=== PATIENT | male | born 1950 | race Caucasian/White ===

== ENCOUNTER 2023-08-16 09:54 | Outpatient (OUT) | payer MEDICARE, SELFPAY ==
[2023-08-16 11:09] LABS: Prostate Specific Antigen Scrn 1.73 ng/mL (<=4.00)
== END 2023-08-16 09:55 | disposition home or self-care (01) ==
LOC: LAB 09:59
PROVIDERS: PCP Internal Medicine; Visit Provider Urology
DX: C61 Malignant neoplasm of prostate (principal); N40.1 Benign prostatic hyperplasia with lower urinary tract symptoms
CPT/HCPCS: 36415; 84153; G0103

== ENCOUNTER 2023-10-12 13:09 | Outpatient (OUT) | payer MEDICARE, SELFPAY ==
--- NOTE | 2023-10-12 | XR_ITS ---
The [address] [address] Patient Name: BALTAZAR DUPONT MRN: [id number] date: 1950 Sex: M Assigned Patient Location: Current Patient Location: Accession/Order Number: [id number] Exam Date: 10/12/2023 13:10 Report Date: 10/13/2023 06:51 At the request of: KALEE APODACA Procedure: XR foot RT min 3V PROCEDURE: XR foot RT min 3V HISTORY: RIGHT FOOT PAIN COMPARISON: None. FINDINGS: BONES:No fracture, acute abnormality, or significant arthropathy. Mild degenerative enthesopathic spurring of the calcaneus. SOFT TISSUES:No visible soft tissue swelling. EFFUSION:None visible. OTHER: Negative. XR/XR foot RT min 3V IMPRESSION: 1. No acute bone abnormality. 2. Minimal degenerative changes. Electronically authenticated by: SANDRA ROMANO Date: 10/13/2023 06:51
--- OUTSIDE RECORDS SUMMARY | 2023-10-12 13:22 | XMS_ITS | CCD ---
Author Organization [facility] Care Team Providers Care Corrections Caseworker Name Role Phone Unavailable Primary Care Provider Alondra DRUMMOND ., DR CORDERO Admitting Unavailable DRUMMOND ., DR CORDERO Attending Unavailable LANIE, DR ODRSEY Primary Care Unavailable DRUMMOND ., DR CORDERO Consulting Unavailable DRUMMOND ., DR CORDERO Admitting Unavailable JOSELYN ., DR CORDERO Attending Unavailable LANIE, DR DORSEY Primary Care Unavailable DRUMMOND ., DR CORDERO Consulting Unavailable DRUMMOND, Ezequiel Bruno Attending Unavailable JOSELYN, Ezequiel Bruno Attending Unavailable Allergies Allergy Classification Reported Allergen(s) Allergy Type Date of Onset Reaction(s) Facility (1 source) No Known Medication Allergies; Translations: [No Known Medication Allergies] Propensity to adverse reactions (disorder) [facility] Repository Medications Current Medications Medication Drug Class(es) Dates Sig (Normalized) Sig (Original) iv contrast (will be provided with radiology test) (1 source) Start: 10-02-2020 End: 10-03-2020 iv contrast (will be provided with radiology test) MRI Prostate Inject, intravenously, once for 1 dose. No IV access, insert saline lock prior to the beginning of sedation, infusion, injection of imaging exam. Discontinue saline lock post exam. If Pt. has a central line or IVAD, may access for administration according to line specific nursing protocol. Once exam is complete flush line and de-access according to line specific nursing protocol in the MR contrast administration guidelines link. 1 Each 0 10/02/2020 10/03/2020 Active Comment on above: MRI Prostate Inject, intravenously, once for 1 dose. No IV access, insert saline lock prior to the beginning of sedation, infusion, injection of imaging exam. Discontinue saline lock post exam. If Pt. has a central line or IVAD, may access for administration according to line specific nursing protocol. Once exam is complete flush line and de-access according to line specific nursing protocol in the MR contrast administration guidelines link. Problems Problem Classification Problem Date Documented Da te Episodic/Chronic Cancer of prostate (4 sources) Malignant neoplasm of prostate; Translations: [MALIGNANT NEOPLASM OF PROSTATE] Onset: 02-05-2022 Chronic Hyperplasia of prostate (1 source) Benign prostatic hyperplasia with lower urinary tract symptoms; Translations: [BENIGN PROSTATIC HYPERPLASIA W/LUTS] Onset: 02-06-2022 Chronic Results Test Name Value Interpretation Reference Range Facility [facility] 08-17-2023 Lab Reports [id number] Normal [facility] Ambulatory Visit Summaryon 0 10-30-2022 Ambulatory Visit Summary HERIBERTO DUPONT :1950 MRN:[id number] Visit Date:10/30/2022 Ambulatory Visit Instructions Your Diagnosis Prostate cancer BPH (benign prostatic hyperplasia) Tests Performed Urnls Dip Stick Auto w/o Microscopy POC 85018 Your Care Team Attending Physician - JOSELYN FISHER, Ezequiel Bruno Primary Care Physician - LANIE FISHER, WILLIAN Hernandez This Is Your Medications List Contact prescribing physician if questions or concerns amlodipine-benazepril (amLODIPine-benazepril 10mg-40 mg Cap) labetalol (labetalol 300 mg Tab) potassium chloride (Klor-Con 10 mEq) simvastatin (simvastatin 20 mg Tab) Procedures Performed MRI-US fusion guided transperineal biopsy of prostate (11/12/2020), Transrectal biopsy of prostate using ultrasound (US) guidance (06/16/2018), Transrectal biopsy of prostate using ultrasound guidance (05/18/2017), Transrectal biopsy of prostate using ultrasound guidance (05/05/2016), Transrectal biopsy of prostate using ultrasound guidance (03/13/2014), TURP - Transurethral resection of prostate (03/16/2013), Cystoscopy (02/14/2013), Transrectal biopsy of prostate using ultrasound guidance (06/16/2008), Cystoscopy (2008), TURBT - Transurethral resection of bladder tumor (2008), Urodynamics (2008), Appendectomy, Carpal tunnel release, Cholecystectomy, Colonoscopy. Discharge Vitals Heart Rate (Peripheral) 72 Respiratory Rate 16 Blood Pressure 129/78 Height 167 cm Height 66 in Weight 75 kg Weight 165 lb BMI 26.89 What to do next You Need to Schedule the Following Appointments Follow Up with JOSELYN FISHER, GARY Amaya When: Where: [facility] [address], [place] [address]- Medications What How Much When Instructions Unchanged amlodipine-benazepril (amLODIPine-benazepril 10mg-40 mg Cap) 1 Capsules By Mouth Every day Contact prescribing physician if questions or concerns Unchanged labetalol (labetalol 300 mg Tab) 1 Tablets By Mouth 2 times a day Contact prescribing physician if questions or concerns Unchanged potassium chloride (Klor-Con 10 mEq) 1 Tablets By Mouth Every day Contact prescribing physician if questions or concerns Unchanged simvastatin (simvastatin 20 mg Tab) 1 Tablets By Mouth Once a day (at bedtime) Contact prescribing physician if questions or concerns Test Results Urnls Dip Stick Auto w/o Microscopy POC 76901 (10/30/2022) Bilirubin Urine Dipstick - 1+ Small Blood Urine Dipstick - Trace-lysed Glucose Urine Dipstick - Negative Ketones Urine Dipstick - Negative Leukocytes Urine Dipstick - Negative Nitrite Urine Dipstick - Negative Protein Urine Dipstick - 1+ (30 mg/dl) Specific [place] Urine Dipstick - 1.025 Urine Appearance Urine Dipstick - Clear Urine Color Urine Dipstick - Yellow Urobilinogen Urine Dipstick - Normal 0.2-1 EU/dl pH Urine Dipstick - 6 Allergies No Known Medication Allergies Problems Ongoing - Any problem that you are currently receiving treatment for. BPH (benign prostatic hyperplasia) Elevated PSA Epididymitis Hyperlipidemia Hypertension Microscopic hematuria Nocturia Prostate cancer Prostatitis Proteinuria Urge incontinence Education Materials Prostate Cancer The prostate is a small gland that produces fluid that makes up semen (seminal fluid). It is located below the bladder in men, in front of the rectum. Prostate cancer is the abnormal growth of cells in the prostate gland. What are the causes? The exact cause of this condition is not known. What increases the risk? You are more likely to develop this condition if: ? You are 65 years of age or older. ? You have a family history of prostate cancer. ? You have a family history of breast and ovarian cancer. ? You have genes that are passed from parent to child (inherited), such as BRCA1 and BRCA2. ? You have Alston syndrome. men and men of descent are diagnosed with prostate cancer at higher rates than other men. The reasons for this are not well understood and are likely due to a combination of genetic and environmental factors. What are the signs or symptoms? Symptoms of this condition include: ? Problems with urination. This may include: ? A weak or interrupted flow of urine. ? Trouble starting or stopping urination. ? Trouble emptying the bladder all the way. ? The need to urinate more often, especially at night. ? Blood in urine or semen. ? Persistent pain or discomfort in the lower back, lower abdomen, or hips. ? Trouble getting an erection. ? Weakness or numbness in the legs or feet. How is this diagnosed? This condition can be diagnosed with: ? A digital rectal exam. For this exam, a health care provider inserts a gloved finger into the rectum to feel the prostate gland. ? A blood test called a prostate-specific antigen (PSA) test. ? A procedure in which a sample of tissue is taken from the prostate and travis (more content not included)... Normal [facility] Patient Educationon 10-30- 23 Patient Education Oncology Prostate Cancer The prostate is a small gland that produces fluid that makes up semen (seminal fluid). It is located below the bladder in men, in front of the rectum. Prostate cancer is the abnormal growth of cells in the prostate gland. What are the causes? The exact cause of this condition is not known. What increases the risk? You are more likely to develop this condition if: ? You are 65 years of age or older. ? You have a family history of prostate cancer. ? You have a family history of breast and ovarian cancer. ? You have genes that are passed from parent to child (inherited), such as BRCA1 and BRCA2. ? You have Alston syndrome. men and men of descent are diagnosed with prostate cancer at higher rates than other men. The reasons for this are not well understood and are likely due to a combination of genetic and environmental factors. What are the signs or symptoms? Symptoms of this condition include: ? Problems with urination. This may include: ? A weak or interrupted flow of urine. ? Trouble starting or stopping urination. ? Trouble emptying the bladder all the way. ? The need to urinate more often, especially at night. ? Blood in urine or semen. ? Persistent pain or discomfort in the lower back, lower abdomen, or hips. ? Trouble getting an erection. ? Weakness or numbness in the legs or feet. How is this diagnosed? This condition can be diagnosed with: ? A digital rectal exam. For this exam, a health care provider inserts a gloved finger into the rectum to feel the prostate gland. ? A blood test called a prostate-specific antigen (PSA) test. ? A procedure in which a sample of tissue is taken from the prostate and checked under a microscope (prostate biopsy). ? An imaging test called transrectal ultrasonography. Once the condition is diagnosed, tests will be done to determine how far the cancer has spread. This is called staging the cancer. Staging may involve imaging tests, such as a bone scan, CT scan, PET scan, or MRI. Stages of prostate cancer The stages of prostate cancer are as follows: ? Stage 1 (I). At this stage, the cancer is found in the prostate only. The cancer is not visible on imaging tests, and it is usually found by accident, such as during prostate surgery. ? Stage 2 (II). At this stage, the cancer is more advanced than it is in stage 1, but the cancer has not spread outside the prostate. ? Stage 3 (III). At this stage, the cancer has spread beyond the outer layer of the prostate to nearby tissues. The cancer may be found in the seminal vesicles, which are near the bladder and the prostate. ? Stage 4 (IV). At this stage, the cancer has spread to other parts of the body, such as the lymph nodes, bones, bladder, rectum, liver, or lungs. Prostate cancer grading Prostate cancer is also graded according to how the cancer cells look under a microscope. This is called the Chris score and the total score can range from 6?10, indicating how likely it is that the cancer will spread (metastasize) to other parts of the body. The higher the score, the greater the likelihood that the cancer will spread. ? Chris 6 or lower: This indicates that the cancer cells look similar to normal prostate cells (well differentiated). ? Chris 7: This indicates that the cancer cells look somewhat similar to normal prostate cells (moderately differentiated). ? Chris 8, 9, or 10: This indicates that the cancer cells look very different than normal prostate cells (poorly differentiated). How is this treated? Treatment for this condition depends on several factors, including the stage of the cancer, your age, personal preferences, and your overall health. Talk with your health care provider about treatment options that are recommended for you. Common treatments include: ? Observation for early stage prostate cancer (active surveillance). This involves having exams, blood tests, and in some cases, more biopsies. For some men, this is the only treatment needed. ? Surgery. Types of surgeries include: ? Open surgery (radical prostatectomy). In this surgery, a larger incision is made to remove the prostate. ? A laparoscopic radical prostatectomy. This is a surgery to remove the prostate and lymph nodes through several small incisions. It is often referred to as a minimally invasive surgery. ? A robotic radical prostatectomy. This is laparoscopic surgery to remove the prostate and lymph nodes with the help of robotic arms that are controlled by the surgeon. ? Cryoablation. This is surgery to freeze and destroy cancer cells. ? Radiation treatment. Types of radiation treatment include: ? External beam radiation. This type aims beams of radiation from outside the body at the prostate to destroy cancerous cells. ? Brachytherapy. This type uses radioactive needles, seeds, wires, or tubes that are implanted into the prostate gland. Like external be (more content not included)... Normal [facility] Urology Office/Clinic Noteon 10-30-2022 Urology Office/Clinic Note Chief Complaint prostate cancer (ACTIVE SURVEILLANCE) HPI Staff 8 month f/u with PSA. Previous dx include prostate cancer (ACTIVE SURVEILLANCE) and BPH with urinary obstruction. Current PSA done 10/16/22 is 1.94 and previous done 02/05/22 was 2.18. Dysuria: no Incomplete bladder emptying: no Hematuria: no Frequency: no Urgency: no Nocturia: 1-2x Stream: no straining or intermittency Leaking: no Post void dripping: no Wearing pads/ Depends: no Urge incontinence: no Stress incontinence: no Incontinence without Sensory Awareness: no Abdominal pain: no Flank pain: no Sexual complaints: no History of Present Illness Tests reviewed: reviewed UA, PSA. I have reviewed the previous health record information and history for this patient from Dr. Drummond. I have reviewed and verified the staff HPI to be accurate for this encounter. There have been no associated fever, chills, flank pain, or blood in the urine. Denies any urinary infections since last encounter. Review of Systems PHQ Score Initial Depression Screen Score: 0 ROS - Provider Constitutional: denies weight loss, denies hot flashes. Eyes: denies eye problems. Gastrointestinal: denies nausea, denies vomiting. Cardiovascular: denies chest pain or angina. Integumentary: no dryness Musculoskeletal: denies musculoskeletal symptoms. ENMT: denies otolaryngeal symptoms. Respiratory: no shortness of breath. Heme/Lymph: denies easy bleeding tendency, denies easy bruising tendency. Psychiatric: no confusion, no anxiety. Genitourinary: See HPI. Physical Exam Vitals & Measurements HR: 72(Peripheral) RR: 16 BP: 129/78 HT: 66 in HT: 167 cm WT: 75 kg WT: 165 lb BMI: 26.89 General Appearance: alert, no distress, well nourished, well developed male. Genitourinary: normal scrotum, normal testes, normal urethra, normal epididymis, normal vas deferens/spermatic cord. Flank Pain: none. Bladder: nonpalpable. Prostate: normal prostate, estimated weight 35 gms, no hard nodule observed. Assessment/Plan 1. Prostate cancer (C61: Malignant neoplasm of prostate) ACTIVE SURVEILLANCE. PSA: 06/10/21 - 1.80 02/05/22 - 2.18 10/16/22 - 1.94 Originally dx TURP 03/2013 - Path showed G5 (2+3). TRUS/Bx 04/2016 - Path showed G6 (3+3) x 2 cores. MRI 09/2020 - PI-RADS, 4 left peripheral zone lesion 0.8 cm. Fusion bx by Dr Carrera at [facility] 11/12/20 - 1 core PIN (right base) and 9 benign (including 4 from area of suspicion). PSA decreased from prior. Will cont to monitor. NELL today 35 gm, no nodules. Follow up 10 mos with PSA or sooner if needed. Pt understands and agrees with plan. -Consider MRI if PSA changes or NELL positive. 2. BPH (benign prostatic hyperplasia) (N40.0: Benign prostatic hyperplasia without lower urinary tract symptoms) S/p TURP 03/2013. UA today shows trace-lysed blood, neg for infection. Not taking any BPH meds. Follow-up With When Contact Information JOSELYN FISHER, Ezequiel Bruno, URL [facility] [address], [place] [address]- Additional Instructions: 10 mos PSA Patient Education Prostate Cancer I, Sowmya Casiano, personally scribed for Dr. Drummond on 10/30/2022 10:47:46. . Documentation recorded by the deweyibe, Sowmya Casiano, accurately reflects the services(s) I performed and decisions made by me. Authenticated by Dr. Drummond on 10/30/2022 10:50:30. Problem List/Past Medical History Ongoing BPH (benign prostatic hyperplasia) Elevated PSA Epididymitis Hyperlipidemia Hypertension Microscopic hematuria Nocturia Prostate cancer Prostatitis Proteinuria Urge incontinence Historical No qualifying data Procedure/Surgical History MRI-US fusion guided transperineal biopsy of prostate (11/12/2020), Transrectal biopsy of prostate using ultrasound (US) guidance (06/16/2018), Transrectal biopsy of prostate using ultrasound guidance (05/18/2017), Transrectal biopsy of prostate using ultrasound guidance (05/05/2016), Transrectal biopsy of prostate using ultrasound guidance (03/13/2014), TURP - Transurethral resection of prostate (03/16/2013), Cystoscopy (02/14/2013), Transrectal biopsy of prostate using ultrasound guidance (06/16/2008), Cystoscopy (2008), TURBT - Transurethral resection of bladder tumor (2008), Urodynamics (2008), Appendectomy, Carpal tunnel release, Cholecystectomy, Colonoscopy. Medications amLODIPine-benazepril 10mg-40 mg Cap, 1 cap(s), Oral, Daily Klor-Con 10 mEq, 10 mEq= 1 tab(s), Oral, Daily labetalol 300 mg Tab, 300 mg= 1 tab(s), Oral, BID simvastatin 20 mg Tab, 20 mg= 1 tab(s), Oral, Once a day (at bedtime) Allergies No Known Medication Allergies Social History Alcohol - Denies Alcohol Use, 03/27/2019 Tobacco - Denies Tobacco Use, 03/27/2019 Never (less than 100 in lifetime) Tobacco Use:., 02/16/2022 Never (less than 100 in lifetime) Tobacco Use:., 10/02/2019 Family History Primary malignant neopl (more content not included)... Normal [facility] Comment on above: Result Comment: Elec tronically Signed By: JOSELYN FISHER, Ezequiel Bella.jordy\Date and Time Signed: 10/30/22 10:50 EDT\.br\Electronically Co-Signed By: Sowmya Casiano\.br\Date and Time Co-Signed: 10/30/22 10:48 EDT [facility] 10-20-2022 Lab Reports [id number]:[id number] Normal [facility] CNOVon 11-22-2020 CNOV Office Visit (UROLMN ) HERIBERTO DUPONT ([id number]) 1950 M Date Time Provider Department 11/22/20 11:15 AM INEZ CARRERA During your visit today, we recorded the following information about you: Kavya Gonzalez APRN.SHELLACKER 11/22/2020 10:55 AM Signed Plan to continue active surveillance for your prostate cancer- recent biopsy on 11/12/2020 negative for cancer. Please have your PSA checked in 1 month and in 8 months- please have results faxed to [facility] at [phone]. Plan for a follow up virtual visit with Dr. Carrera in 8 months. Kavya Gonzalez APRN.SHELLACKER 11/22/2020 11:15 AM Signed Chief Complaint: follow up prostate cancer Clinic note from 10/11/2020 copied and updated. HPI: Heriberto Dupont is a 70 year old male with hx of HTN and HLD on for prostate cancer who presents for follow up evaluation. Family hx of prostate cancer: Yes, in father and older brother. Diagnosed 2012 with Gl 2+3=5 Adenocarcinoma has been on active surveillance Biopsy 2014 benign ( no report) Biopsy 04/2016- 3+3 in 2 cores( no report) Biopsy 2019- Benign MRI prostate (10/02/2020) revealed PI-RADS 4 lesion. Also with indeterminate left iliac bone lesion. He is s/p MRI fusion prostate biopsy on 11/12/2020, which revealed focal HGPIN and benign tissue. F/u MRI pelvis ortho revealed bone islands with no concerning marrow replacing lesions. Interval Hx: Overall, he reports doing well. No issues after biopsy. No fever/chills. Voiding without difficulty- no dysuria. Gross hematuria after biopsy gradually improving. LABS 02/06/2020 PSA 1.67 ng/mL Surgical Pathology 11/12/2020 FINAL DIAGNOSIS 1. Left base, left mid, left apex, prostate, biopsy (A-C) - Benign prostatic parenchyma. 2. Right base, prostate, biopsy (D) - Focal high-grade prostatic intraepithelial neoplasia. 3. Right mid, right apex, T1-left apex/mid, postlat PZ prostate, biopsy (E-G) - Benign prostatic parenchyma. IMAGING MRI PELVIS ORTHO WO IVCON 11/21/2020 IMPRESSION: BONE ISLANDS. ?NO CONCERNING MARROW REPLACING LESIONS. MRI PROSTATE WO/W IVCON 10/02/2020 IMPRESSION: PI-RADS 4 LEFT 0.8 CM PERIPHERAL ZONE LESION, DESCRIBED. NO LYMPHADENOPATHY. LEFT ILIAC BONE 1.3 CM LESION IS INDETERMINATE. ?CORRELATION WITH PRIOR STUDIES OR DEDICATED MRI IS RECOMMENDED FOR FURTHER EVALUATION. REVIEW OF SYSTEMS GENERAL:No weight loss, malaise or fevers., SEE HPI GENITOURINARY: No history of dysuria, frequency or incontinence The remainder of the ROS was negative. HISTORIES PAST MEDICAL HISTORY Diagnosis Date - HLD (hyperlipidemia) - HTN (hypertension) - Prostate cancer (HCC) No family history on file. SOCIAL HISTORY Social History Tobacco Use - Smoking status: Never Smoker - Smokeless tobacco: Never Used Substance Use Topics - Alcohol use: Not on file - Drug use: Not on file PHYSICAL EXAMINATION General appearance: Well appearing, alert, in no acute distress and well-hydrated, well nourished Lungs: Clear to auscultation no wheezing or rhonchi Heart: RRR without murmur, gallop, or rubs. No ectopy Abdomen: Normal abdominal exam, Abdomen soft, non-tender. Bowel sounds normal. No masses, organomegaly, Negative CVA tenderness Genitourinary: deferred Assessment (C61) Prostate cancer (HCC) (primary encounter diagnosis) Heriberto Dupont is a 70 year old male with hx of HTN and HLD on for prostate cancer who presents for follow up evaluation. He was initially diagnosed in 2012. MRI prostate (10/02/2020) revealed PI-RADS 4 lesion. Also with indeterminate left iliac bone lesion. He is s/p MRI fusion prostate biopsy on 11/12/2020, which revealed focal HGPIN and benign tissue. F/u MRI pelvis ortho revealed bone islands with no concerning marrow replacing lesions. Biopsy and imaging results discussed with patient. Recommended continued . Plan -Continue - check PSA in 1 month and in 8 months. Standing order placed and he will complete at local lab and have results faxed to [facility]. -Follow up virtual visit with Dr. Carrera in 8 months with PSA prior to visit. Discussed with Dr. Carrera. Kavya Gonzalez APRN.SHELLACKER Referring Provider: INEZ CARRERA [[id number]] Allergies As of Date: 11/22/2020 (No Known Allergies) Date Reviewed: 11/22/2020 Reviewed by: Kavya Gonzalez APRN.SHELLACKER - Fully Assessed Reason for Visit: Follow Up [171] Primary Visit Diagnosis:Prostate cancer (HCC) [C61] Order(s):PSA/PROSTSPEC AG DIAG [SQPSA] Order #: [id number] STANDING Prescriptions as of 11/22/2020 Sig: LABETALOL ORAL POTASSIUM CHLORIDE ER 10 MEQ * SIMVASTATIN ORAL AMLODIPINE 10 MG-BENAZEPRIL 4* TAKE 1 CAPSULE BY MOUTH ONCE * Problem List As Of Date 11/22/2020 Noted Resolved Prostate cancer (HCC) [C61] 10/11/2020 Other instructions from your clinician: Plan to continue active surveillance for your prostate c (more content not included)... Normal [facility] Urinalysison 11-22-2020 Bilirubin, Urine Negative [facility] Comment on above: Performed By: #### U A ####[facility] [id number] [place], [place] [phone] Cast SEE COMMENT Critically abnormal 0 [facility] Comment on above: Result Comment: 4-10 Hyaline Cast Performed By: #### U A ####[facility] [id number] [place], [place] [phone] Clarity (U) Clear Normal Clear [facility] Comment on above: Performed By: #### U A ####[place] [phone] Color (U) Yellow Normal Yellow [facility] Comment on above: Performed By: #### U A ####[place] [phone] Comments SEE COMMENT Normal [facility] Comment on above: Result Comment: Micr oscopic Examination Performed Performed By: #### U A ####[place] [phone] Epithelial cells LM Ql (Urine sed) SEE COMMENT Normal [facility] Comment on above: Result Comment: Few Squamous Epithelial Cells Performed By: #### U A ####[place] [phone] Glucose Ql (U) Negative Normal Negative [facility] Comment on above: Performed By: #### U A ####[place] [phone] Hemoglobin/Blood, Ur 3+ Critically abnormal Negative [facility] Comment on above: Performed By: #### U A ####[place] [phone] Ketones Ql (U) Negative Normal Negative [facility] Comment on above: Performed By: #### U A ####[place] [phone] Leukest 75 Critically abnormal Negative [facility] Comment on above: Performed By: #### U A ####[place] [phone] Nitrite Ql (U) Negative Normal Negative [facility] Comment on above: Performed By: #### U A ####[place] [phone] pH (U) 6.0 [pH] Normal 5.0-8.0 [facility] Comment on above: Performed By: #### U A ####[facility], [place] [phone] Protein, Urine 1+ Critically abnormal Negative C [facility] Comment on above: Performed By: #### U A ####[place] [address] [address], [place] [phone] RBC 11-25 Critically abnormal 0-3 [facility] Comment on above: Performed By: #### U A ####[place] [address] [address], [place] [phone] Specific [place], Ur 1.026 Normal 1.005-1.030 [facility] Comment on above: Performed By: #### U A ####[address] [place], [place] [phone] Urine Js Comment SEE COMMENT Normal [facility] Comment on above: Result Comment: N/A Performed By: #### U A ####[place] [address] [place], [place] [phone] Urobilinogen Qn (U) {Michelle'U}/dL Critically abnormal Negative [facility] Comment on above: Performed By: #### U A ####[place] [address] [place], [place] [phone] WBC 11-25 Critically abnormal 0-5 [facility] Comment on above: Performed By: #### U A ####[place] [address] [place], [place] [phone] MRI PELVIS ORTHO GEN WO IVCO Non 11-21-2020 MRI PELVIS ORTHO GEN WO IVCON * * *Final Report* * * DATE OF EXAM: Nov 21 2020 6:39PM QBM [id number] - MRI PELVIS ORTHO GEN WO IVCON / PROCEDURE REASON: Disorder of bone * * * * Physician Interpretation * * * * HISTORY: Disorder of bone Iliac bone lesion noted on recent prostate MRI. [facility] PROVIDED HISTORY (if applicable): TECHNIQUE: MRI PELVIS ORTHO GEN WO IVCON RESULT: MRI of the pelvis confirms the lesion in the LEFT ilium (4:20, 7:18, 9:54), measuring 1.0 x 1.0 x 1.5 cm (AP x TRV x CC). It is homogeneously low in signal intensity on all sequences and has a typical appearance of a benign bone island. A second homogeneously low signal intensity intramedullary lesion measuring 7 mm in diameter is seen in the RIGHT posterior column, also typical for a bone island. There is no concerning marrow replacing lesion or fracture. Symmetric mild gluteus jeremy and gluteus minimus fatty atrophy. Sacroiliac joints symphysis and hips are normal. Heterogeneous appearance of the prostate; please refer to the dedicated prostate MRI 09/24/2020. IMPRESSION: BONE ISLANDS. NO CONCERNING MARROW REPLACING LESIONS. Motor Overhauler: BLANK Transcribe Date/Time: Nov 21 2020 8:27P Dictated by : RENNY CORONEL MD This examination was interpreted and the report reviewed and electronically signed by: RENNY CORONEL MD on Nov 21 2020 8:36PM EST [id number] Normal [facility] CNOVon 11-12-2020 CNOV Office Visit (UROSMN ) HERIBERTO DUPONT ([id number]) 1950 M Date Time Provider Department 11/12/20 10:45 AM INEZ CARRERA During your visit today, we recorded the following information about you: Torres Llamas RN 11/12/2020 11:26 AM Signed Actual procedure/procedure scheduled: Yes Performing provider/scheduled provider: Yes Patient was roomed in: Q9- 12 Patient arrived in the room at: 1013 Patient ready for procedure: 1043 The procedure started at ( Time Only): 1059 The procedure ended at: 1119 Was the procedure delayed: No The patient left the procedure room at: 1128 Torres Llamas RN PRE PROCEDURE ASSESSMENT- TRUS Bx with MRI fusion Procedure/Indication: TRUS with Fusion Biopsy Latex Allergy: No Allergies reviewed and updated Yes Pre-Procedure Vital Signs: BP: 173/82 Pulse: 70 Heart Valve replacement: No Joint replacement: No Do you currently have an infection: No Anticoagulant: No Back Office UA obtained: yes PROCEDURE PREP- TRUS BX Patient ID with two(2)identifiers verified by: Torres Llamas RN Pre-Procedure Antibiotics: Gentamicin 120 mg IM given during visit @ 1020 , by Torres Llamas RN Levaquin 750 mg orally, given during visit @ 1020 , by Torres Llamas RN Anesthetic given: Administered by MD - see Procedure Physician Note. UNIVERSAL PROTOCOL / SAFETY CHECKLIST Procedure to be performed: TRUS with Fusion Biopsy Sign in Communication: Completed Time Out: Team Confirms the Correct Patient, Correct Procedure, Correct Site and Site Marking, Correct Position (if applicable) Sign Out Discussion: Completed Torres Llamas RN POST PROCEDURE NURSE ASSESSMENT Present along with physician during procedure exam. Torres Llamas RN Instruction sheet given and reviewed and patient verbalizes understanding: yes Post-Procedure Vital Signs: BP: 135/73 Pulse: 79 Current pain intensity is 0 on a 0-10 pain scale. 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 Inez Carrera MD 12/29/2020 3:59 PM Signed MR-US Fusion with Guided US for Prostate Biopsy Report Name: Heriberto Dupont MR#: [id number] Date: November 12, 2020 DIAGNOSIS: Prostate Cancer on Active Surveillance SURGEON: Inez Carrera MD TRANSRECTAL ULTRASOUND: ? Prostate Volume: 37cc. ? PSA density: 0.04 ng/cc ? No hypoechogenic areas suggestive of cancer are seen. ? Seminal vesicles: Normal ? Documentation images were taken. Yes ULTRASONIC GUIDED PROSTATE BIOPSY: ? Prostate anesthetic block was performed using lidocaine. ? Biopsies of abnormal appearing areas were performed. ? Random biopsies were taken from the base, mid-gland and apex bilaterally. ? Total number of biopsies taken. 10 total- 4 from target, 6 random. PROCEDURE DESCRIPTION: Informed consent was obtained and signed. The patient was placed in the left lateral decubitus position. The transrectal ultrasound probe was placed in the rectum. Imaging in transverse and longitudinal views was done with the findings as indicated. Multiple biopsies of the prostate via needle were obtained using ultrasonic guidance into the rectum. Post procedure instructions were given to the patient in detail per post op instruction sheet. Patient will be contacted with the biopsy result when available. If performed: 3D Rendering W/Postprocess for MR-US FUSION PROCEDURE DESCRIPTION: Due to the complex morphology of prostate cancer, targeted biopsy of suspected prostate cancers was required. These lesions were identified using magnetic resonance-ultrasound (MR-US) fusion based on 3D rotational segmentation, landmark selection and multi-planar reconstruction of the prostate gland using the AmpexNav system. Identification of regions of interest were performed in an offline workstation and personally reviewed by the urologist prior to the procedure. -F/u on the to discuss pathology in the afternoon with Mri pelvis done prior. Scribe Attestation: By signing my name below, I, Ana María Guillen, attest that this documentation has been prepared under the direction and in the presence of Dr. Inez Carrera MD. Electr (more content not included)... Normal [facility] SURGICAL PATHOLOGYon 021 SURGICAL PATHOLOGY Specimen originated from [facility] Specimen #: [id number] Submitting Physician: INEZ CARRERA M.D. (Q10) FINAL DIAGNOSIS 1. Left base, left mid, left apex, prostate, biopsy (A-C) - Benign prostatic parenchyma. 2. Right base, prostate, biopsy (D) - Focal high-grade prostatic intraepithelial neoplasia. 3. Right mid, right apex, T1-left apex/mid, postlat PZ prostate, biopsy (E-G) - Benign prostatic parenchyma. ANA/blaine 11/13/2020 COMMENT P63 immunostain was performed on block G1. Basal cells are identified. Laboratory Developed Test (LDT) Disclaimer: Positive and negative controls stain appropriately. Performance characteristics of immunohistochemical, immunofluorescent and chromogenic in-situ hybridization tests have been determined by [facility]'s [facility] Pathology and Laboratory Medicine [place] [facility] in a manner consistent with CLIA requirements. One or more of these tests have not been cleared or approved by the FDA. [facility] is regulated under CLIA as qualified to perform high-complexity testing. These tests are used for clinical purposes. They should not be regarded as investigational or for research. Edd Guillory M.D. (Electronic Signature) _ SPECIMEN SUBMITTED A: LEFT BASE X1 PROSTATE, BIOPSY B: LEFT MID X1 PROSTATE, BIOPSY C: LEFT APEX X1 PROSTATE, BIOPSY D: RIGHT BASE X1 PROSTATE, BIOPSY E: RIGHT MID X1 PROSTATE, BIOPSY F: RIGHT APEX X1 PROSTATE, BIOPSY G: T1-LEFT APEX/MID POSTLAT PZ (PIRADS-4) X4 PROSTATE, BIOPSY CLINICAL DATA ELEVATED PSA GROSS DESCRIPTION A. Received in alcoholic formalin on Telfa gauze is one cylindrical tissue core measuring 1.9 x 0.1 x0.1 cm, which is ramos and of a soft and friable consistency. Totally submitted in formalin in one cassette. B. Received in formalin on Telfa gauze is one cylindrical tissue core measuring 1.8 x 0.1 x0.1 cm, which is ramos and of a soft and friable consistency. A portion of the core may not survive processing. Totally submitted in formalin in one cassette. C. Received in alcoholic formalin on Telfa gauze is one cylindrical tissue segment measuring 2.0 x 0.1 x0.1 cm, which is ramos and of a soft and friable consistency. A portion of the core may not survive processing. Totally submitted in formalin in one cassette. D. Received in alcoholic formalin on Telfa gauze is one cylindrical tissue core measuring 2.1 x 0.1 x0.1 cm, which is ramos and of a soft and friable consistency. A portion of the core may not survive processing. Totally submitted in formalin in one cassette. E. Received in alcoholic formalin on Telfa gauze is one cylindrical tissue core measuring 2.0 x 0.1 x0.1 cm, which is ramos and of a soft and friable consistency. A portion of the core may not survive processing. Totally submitted in formalin in one cassette. F. Received in alcoholic formalin on Telfa gauze is one cylindrical tissue core measuring 2.1 x 0.1 x0.1 cm, which is ramos and of a soft and friable consistency. A portion of the core may not survive processing. Totally submitted in formalin in one cassette. G. Received in alcoholic formalin on Telfa gauze are four segments of cylindrical tissue ranging in length from 1.7-1.9 and averaging 0.1 cm in diameter, ramos and of a soft and friable consistency. A portion of one core may not survive processing. Totally submitted in formalin in two cassettes. Gross examination performed at [facility], [address] [place] [address] 11/12/2020 5:18:41 PM Date of Report: 11/15/2020 Date of Procedure: 11/12/2020 Date of Receipt: 11/12/2020 Submitted by: INEZ CARRERA M.D. (Q10) Additional Physician(s): MD CHUN OREILLY MD AMAR C. GUPTA, MD Location: [facility] Diagnostic interpretation performed at [place] [address]. [place] Number: [id number] Normal [facility] CNOVon 10-11-2020 CNOV Office Visit (UROLMN ) HERIBERTO DUPONT ([id number]) 1950 M Date Time Provider Department 10/11/20 11:55 AM MARC LAUGHLIN During your visit today, we recorded the following information about you: Pulse Respiration Blood pressure Weight 64/minute 16/minute 146/73 78 kg Marc Laughlin MD, PhD 10/11/2020 7:05 PM Signed [facility] NEW PATIENT HISTORY AND PHYSICAL EXAM PATIENT INFO: Heriberto Dupont REFERRING PROVIDER: Self PCP: No primary care provider on file. HISTORY HPI: Heriberto Dupont is a 70 year old male who presents today for evaluation of prostate cancer-H/o TURP 04/16/2013, laser bladder tumor and prostate 2009 per patient. No LUTS Diagnosed 2012 with Gl 2+3=5 Adenocarcinoma has been on active surveillance Biopsy 2013 benign ( no report) Biopsy 04/2016- 3+3 in 2 cores( no report) Biopsy 2018- Benign MRI prostate 10/02/20 IMPRESSION: PI-RADS 4 LEFT 0.8 CM PERIPHERAL ZONE LESION, DESCRIBED. NO LYMPHADENOPATHY. LEFT ILIAC BONE 1.3 CM LESION IS INDETERMINATE. ?CORRELATION WITH PRIOR STUDIES OR DEDICATED MRI IS RECOMMENDED FOR FURTHER EVALUATION. Outside PSA 02/06/20- 1.84 Abdominal surgeries: Patient is generally in good health. Denies nausea, fevers, fatigue, loss of appetite. GUROS: Obstructive - weak stream: no, hesitancy: no, intermittency: no, post-void dribbling: no, incomplete emptying: no. Irritative - NTF 0-2 (not bothersome) , DTF xq 4-5 hours , gross hematuria no, dysuria no, urgency no, history of recurrent UTI's no, nephrolithiasis no MEDICATIONS: Current Outpatient Medications Medication Sig Dispense Refill - labetalol HCl (LABETALOL ORAL) - potassium chloride SR (MICRO-K) 10 mEq CR capsule - SIMVASTATIN ORAL - amLODIPine-Benazepril 10-40 mg per capsule TAKE 1 CAPSULE BY MOUTH ONCE DAILY FOR 90 DAYS No current facility-administered medications for this visit. MEDICATION ALLERGIES: ALLERGIES No Known Allergies PAST MEDICAL HISTORY: No past medical history on file. PAST SURGICAL HISTORY: No past surgical history on file. FAMILY HISTORY: No family history on file. 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 ENMT: Negative CARDIOVASCULAR:NO CHEST PAIN, PALPITATIONS, ANKLE EDEMA RESPIRATORY: No chronic cough, wheezing, dyspnea, hemoptysis. GENITOURINARY: SEE HPI MUSCULOSKELETAL:NO CHRONIC BACK PAIN, ARTHRITIS, CHRONIC NECK PAIN SKIN: NO VARICOSE VEINS, RASH, ABNORMAL ITCHING HEME/LYMPH/IMMUNE:Nega tive for prolonged bleeding, bruising easily or swollen nodes NEUROLOGICAL: NO HEADACHES, NUMBNESS, SEIZURES, STROKE All other systems reviewed and are negative I have confirmed and edited as necessary, the PFSH and ROS obtained by my nurse. PHYSICAL EXAM: Blood Pressure 146/73 Pulse 64 Respiration 16 Weight 78 kg (172 lb) GENERAL:WNL nutrition, no deformities, healthy appearing NEURO: Awake, alert and oriented x 3, Cranial nerves II-XII grossly intact, Normal gait and No involuntary motions. PSYCH: No signs of depression, anxiety, or agitation ENMT (Ear, Nose, Mouth, Throat): No masses, adenopathy, icterus. Thyroid nonpalpable RESP: NL effort, no retractions or purse-lip breathing. CV: No extremity swelling, varices, edema, pallor, erythema GASTROINTESTINAL: Soft, nontender, nondistended, no masses. HERNIAS: None SKIN: No rash, lesions HEME/LYMPH: No palpable lymphadenopathy MUSCULOSKELETAL: Extremities normal. No deformities, edema, clubbing or skin discoloration. LABS: Urine dip shows: Glucose, Urine (mg/dL) Date Value 10/11/2020 Negative Bilirubin, Urine (no units) Date Value 10/11/2020 Negative Bilirubin, Urine (no units) Date Value 10/11/2020 Negative Ketones, Urine (no units) Date Value 10/11/2020 Negative Specific [place], Ur (no units) Date Value 10/11/2020 1.031 Hemoglobin/Blood,Ur ( ) Date Value 10/11/2020 Negative No results found for: PH Protein, Urine (no units) Date Value 10/11/2020 2+ No results found for: UROBIL No components found for: NITR No results found for: UWBC No results found for: UCOLAP IMAGES: MRI prostate 10/02/20: IMPRESSION: PI-RADS 4 LEFT 0.8 CM PERIPHERAL ZONE LESION, DESCRIBED. NO LYMPHADENOPATHY. LEFT ILIAC BONE 1.3 CM LESION IS INDETERMINATE. ?CORRELATION WITH PRIOR STUDIES OR DEDICATED MRI IS RECOM (more content not included)... Normal [facility] HISTORY PHYSICALon HISTORY PHYSICAL HNO ID: [id number] Author: Marc Laughlin MD, PhD Service: ? Author Type: Physician Type: HANDP Filed: 10/11/2020 7:05 PM Note Text: [facility] NEW PATIENT HISTORY AND PHYSICAL EXAM PATIENT INFO: Heriberto Dupont REFERRING PROVIDER: Self PCP: No primary care provider on file. HISTORY HPI: Heriberto Dupont is a 70 year old male who presents today for evaluation of prostate cancer-H/o TURP 04/16/2013, laser bladder tumor and prostate 2009 per patient. No LUTS Diagnosed 2012 with Gl 2+3=5 Adenocarcinoma has been on active surveillance Biopsy 2013 benign ( no report) Biopsy 04/2016- 3+3 in 2 cores( no report) Biopsy 2018- Benign MRI prostate 10/02/20 IMPRESSION: PI-RADS 4 LEFT 0.8 CM PERIPHERAL ZONE LESION, DESCRIBED. NO LYMPHADENOPATHY. LEFT ILIAC BONE 1.3 CM LESION IS INDETERMINATE. ?CORRELATION WITH PRIOR STUDIES OR DEDICATED MRI IS RECOMMENDED FOR FURTHER EVALUATION. Outside PSA 02/06/20- 1.84 Abdominal surgeries: Patient is generally in good health. Denies nausea, fevers, fatigue, loss of appetite. GUROS: Obstructive - weak stream: no, hesitancy: no, intermittency: no, post-void dribbling: no, incomplete emptying: no. Irritative - NTF 0-2 (not bothersome) , DTF xq 4-5 hours , gross hematuria no, dysuria no, urgency no, history of recurrent UTI's no, nephrolithiasis no MEDICATIONS: Current Outpatient Medications Medication Sig Dispense Refill - labetalol HCl (LABETALOL ORAL) - potassium chloride SR (MICRO-K) 10 mEq CR capsule - SIMVASTATIN ORAL - amLODIPine-Benazepril 10-40 mg per capsule TAKE 1 CAPSULE BY MOUTH ONCE DAILY FOR 90 DAYS No current facility-administered medications for this visit. MEDICATION ALLERGIES: ALLERGIES No Known Allergies PAST MEDICAL HISTORY: No past medical history on file. PAST SURGICAL HISTORY: No past surgical history on file. FAMILY HISTORY: No family history on file. 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 ENMT: Negative CARDIOVASCULAR:NO CHEST PAIN, PALPITATIONS, ANKLE EDEMA RESPIRATORY: No chronic cough, wheezing, dyspnea, hemoptysis. GENITOURINARY: SEE HPI MUSCULOSKELETAL:NO CHRONIC BACK PAIN, ARTHRITIS, CHRONIC NECK PAIN SKIN: NO VARICOSE VEINS, RASH, ABNORMAL ITCHING HEME/LYMPH/IMMUNE:Nega tive for prolonged bleeding, bruising easily or swollen nodes NEUROLOGICAL: NO HEADACHES, NUMBNESS, SEIZURES, STROKE All other systems reviewed and are negative I have confirmed and edited as necessary, the PFSH and ROS obtained by my nurse. PHYSICAL EXAM: Blood Pressure 146/73 Pulse 64 Respiration 16 Weight 78 kg (172 lb) GENERAL:WNL nutrition, no deformities, healthy appearing NEURO: Awake, alert and oriented x 3, Cranial nerves II-XII grossly intact, Normal gait and No involuntary motions. PSYCH: No signs of depression, anxiety, or agitation ENMT (Ear, Nose, Mouth, Throat): No masses, adenopathy, icterus. Thyroid nonpalpable RESP: NL effort, no retractions or purse-lip breathing. CV: No extremity swelling, varices, edema, pallor, erythema GASTROINTESTINAL: Soft, nontender, nondistended, no masses. HERNIAS: None SKIN: No rash, lesions HEME/LYMPH: No palpable lymphadenopathy MUSCULOSKELETAL: Extremities normal. No deformities, edema, clubbing or skin discoloration. LABS: Urine dip shows: Glucose, Urine (mg/dL) Date Value 10/11/2020 Negative Bilirubin, Urine (no units) Date Value 10/11/2020 Negative Bilirubin, Urine (no units) Date Value 10/11/2020 Negative Ketones, Urine (no units) Date Value 10/11/2020 Negative Specific [place], Ur (no units) Date Value 10/11/2020 1.031 Hemoglobin/Blood,Ur ( ) Date Value 10/11/2020 Negative No results found for: PH Protein, Urine (no units) Date Value 10/11/2020 2+ No results found for: UROBIL No components found for: NITR No results found for: UWBC No results found for: UCOLAP IMAGES: MRI prostate 10/02/20: IMPRESSION: PI-RADS 4 LEFT 0.8 CM PERIPHERAL ZONE LESION, DESCRIBED. NO LYMPHADENOPATHY. LEFT ILIAC BONE 1.3 CM LESION IS INDETERMINATE. ?CORRELATION WITH PRIOR STUDIES OR DEDICATED MRI IS RECOMMENDED FOR FURTHER EVALUATION. ASSESSMENT/PLAN: 70 year old male with low risk prostate cancer diagnosed in 2012 on active surveillance. He has undergone 4 biopsies, one (in 2016) which showed Chris 3+3 in 2 cores. PSA = 1.84 in February,. Discussed di (more content not included)... Normal [facility] Urinalysison 10-11-2020 Bilirubin, Urine Negative Normal [facility] Comment on above: Performed By: #### U A ####[facility] [address], [place] [phone] Clarity (U) Clear Normal Clear [facility] Comment on above: Performed By: #### U A ####[facility] [address] [place], [place] [phone] Color (U) Yellow Normal Yellow [facility] Comment on above: Performed By: #### U A ####[place] [address] [address] [phone] Comments SEE COMMENT Normal [facility] Comment on above: Result Comment: Micr oscopic not warranted Performed By: #### U A ####[place] [address] [address] [place] [phone] Glucose Ql (U) Negative Normal Negative [facility] Comment on above: Performed By: #### U A ####[place] [address] [address] [place] [phone] Hemoglobin/Blood, Ur Negative Normal Negative [facility] Comment on above: Performed By: #### U A ####[place] [address] [address] [place] [phone] Ketones Ql (U) Negative Normal Negative [facility] Comment on above: Performed By: #### U A ####[place] [address] [address] [place] [phone] Leukest Negative Normal Negative [facility] Comment on above: Performed By: #### U A ####[place] [address] [address] [place] [phone] Nitrite Ql (U) Negative Normal Negative [facility] Comment on above: Performed By: #### U A ####[place] [address] [address] [place] [phone] pH (U) 6.0 [pH] Normal 5.0-8.0 [facility] Comment on above: Performed By: #### U A ####[place] [address] [address] [place] [phone] Protein, Urine 2+ Critically abnormal Negative C [facility] Comment on above: Performed By: #### U A ####[place] [address] [address] [phone] Specific [place], Ur 1.031 High 1.005-1.030 [facility] Comment on above: Performed By: #### U A ####[facility] [place], [place] [phone] Urine Js Comment SEE COMMENT Normal [facility] Comment on above: Result Comment: N/A Performed By: #### U A ####[facility] [place] [address] [phone] Urobilinogen (U) [Mass/Vol] Negative Normal Negative [facility] Comment on above: Performed By: #### U A ####[facility], [place] [id number] MRI PROSTATE WO/W IVCONon MRI PROSTATE WO/W IVCON * * *Final Report* * * DATE OF EXAM: Oct 02 2020 1:00PM QBM [id number] - MRI PROSTATE WO/W IVCON / PROCEDURE REASON: C61 * * * * Physician Interpretation * * * * EXAMINATION: MRI PELVIS WITHOUT AND WITH IV CONTRAST (MULTIPARAMETRIC PROSTATE MRI) IV CONTRAST CLINICAL HISTORY: 70 years old male with no history provided. COMPARISON: None TECHNIQUE: Multiparametric MRI of the prostate and pelvis performed on a 3T scanner utilizing phase pelvic coil. Sequences obtained: multiplanar T2-WI with small FOV; Axial DWI with multiple B-values and creation of ADC-maps; DCE T1-weighted images through the prostate obtained before, during and after the administration of intravenous gadolinium; prostate dimensions and volume were obtained using a semi-automated software (Smart [place]). CONTRAST: IV: 16 cc of (Dotarem). RESULT: Prostate: Dimensions: 4.7 x 3.9 x 4.1 cm corresponding to a volume of approximately 37 cc. Post biopsy hemorrhage: Absent Peripheral zone: Diffuse mild T2/ADC map hypointensity (PI-RADS 2). Lesion #1: Location: left apex/mid posterolateral peripheral zone Greatest dimension: 0.8-cm (series:4; image:20) T2-WI: Circumscribed, homogenous moderate hypointense focus/mass (score 4) DWI/ADC: Focal markedly hypointense on ADC and markedly hyperintense on high b-value DWI (score 4) DCE: Positive Extra-prostatic extension: Probably absent (capsule contact < 1.5 cm; no capsule irregularity or bulge) PI-RADS assessment category: 4 Transition zone: There is transition zone hypertrophy, without focal abnormalities suspicious for clinically significant disease (PI-RADS 2). No focal lesion present. Neurovascular bundle: Unremarkable. Seminal vesicles: Unremarkable. Adjacent Organ Involvement: Not applicable. Lymph nodes: No enlarged pelvic lymph nodes. Bladder: Unremarkable. Pelvic bones: Left iliac bone marrow replacing lesion measuring 1.3 cm (10:62) is indeterminate. Other Findings: None. IMPRESSION: PI-RADS 4 LEFT 0.8 CM PERIPHERAL ZONE LESION, DESCRIBED. NO LYMPHADENOPATHY. LEFT ILIAC BONE 1.3 CM LESION IS INDETERMINATE. CORRELATION WITH PRIOR STUDIES OR DEDICATED MRI IS RECOMMENDED FOR FURTHER EVALUATION. Number of targets created for MR/US fusion biopsy: Peripheral zone: 1 Transition zone: 0 If present, targets were numbered in order of level of suspicion for clinically significant prostate cancer (Line [place] score 3 + 4 or higher). PI-RADS v2.1 Assessment Categories: PI-RADS 1: Clinically significant cancer is highly unlikely PI-RADS 2: Clinically significant cancer is unlikely PI-RADS 3: Clinically significant cancer is equivocal PI-RADS 4: Clinically significant cancer is likely PI-RADS 5: Clinically significant cancer is highly likely Acuity: Actionable Findings: Musculoskeletal/Rheuma tologic System Routing Code: MSK_1 Recommendation: Unlisted Recommendation (see report) Time Frame: at the discretion of the clinical team. Motor Overhauler: PSCB Transcribe Date/Time: Oct 02 2020 1:08P Dictated by : MARGARITO HERMAN MD This examination was interpreted and the report reviewed and electronically signed by: CHUN MEADOWS MD on Oct 02 2020 2:00PM EST [id number] Normal [facility] Encounters Encounter Date Encounter Type Care Provider Facility Start: 11-08-2023 ambulatory Ezequiel Willingham ty:ADRIANA Chung Start: 10-30-2022 End: 10-31-2022 ambulatory Ezequiel DRUMMOND Facility: [place] Start: 10-16-2022 End: 10-17-[address] EZEQUIEL DRUMMOND . Facility:[facility] Start: 02-05-2022 End: 02-06-[address] EZEQUIEL DRUMMOND . Facility:[facility] Start: 10-02-2020 End: 10-02-2020 Orders Only Margarito Herman MD Work Phone: Radiology Procedures Date Procedure Procedure Detail Performing Clinician Start: 10-16-[address] VANCE DRUMMOND . Comment on above: Performed By: #### P SAD #### [facility] [address] [address] [address] Palma Miranda Start: 02-05-[address] VANCE DRUMMOND . Comment on above: Performed By: #### P SAD #### [facility] [address] [address] [address] Palma Miranda Plan of Treatment Date Care Activity Detail Author Start: 02-05-2021 Influenza vaccination INFLUENZA (Sea son Ended) [facility] Start: 2014 ADVANCE DIRECTIVE DISCUSSION ADVANCE DIRECTIVE DISCUSSION [facility] Start: 2014 PNEUMOVAX AGE 65 AND OVER WITH 5YR LOOKBACK (#1) PNEUMOVAX AGE 65 AND OVER WITH 5YR LOOKBACK (#1) [facility] Start: 08-30-1999 Screening for malign ant neoplasm of colon [facility] Start: 08-30-1999 SHINGRIX VACCINE (1 of 2) HICKS GRIX VACCINE (1 of 2) [facility] Start: 1994 DIABETES SCREEN DIABETES SCREEN [facility] Start: 1984 LIPID SCREEN LIPID SCREEN [facility] Start: 1968 Urine microalbumin profile DTAP,TDAP ,TD (1 - Tdap) [facility] Start: 08-30-1967 HEPATITIS C SCREENING HEPATITIS C SC REENING [facility] Start: 1961 Adult depression scr eening assessment DEPRESSION SCREENING [facility] Payers Date Payer Category Payer Private Health Insurance [employer] A ETNA MEDICARE SUPPLEMENT [id number] 2015-Present Indemnity [id number] 2014 Medicare MEDICARE MEDICAR E A AND B [id number] 2014-Present [place] Medicare [id number] 1959 Medicare [id number] 1959 Private Health Insurance [facility] [id number] 1950 Unknown [id number] 1950 Unknown [id number] 1950 Unknown [id number] 1950 Unknown [id number] Social History Date Type Detail Facility Tobacco smoking status NHIS Unknown if ev er smoked [facility] Start: 1950 Sex Assigned At Not on file [facility] Exposure to SARS-CoV -2 (event) Not sure [facility] Clinical Note 11-22-2020 Note Date & Type Note Facility 11-22-2020 Note Patient Outreach (UR OLMN) HERIBERTO DUPONT ([id number]) 1950 M Date Time Provider Department 11/22/20 INEZ CARRERA During your visit today, we recorded the following information about you: Allergies As of Date: 11/22/2020 (No Known Allergies) Date Reviewed: 11/22/2020 Reviewed by: Kavya Gonzalez APRN.SHELLACKER - Fully Assessed Visit Diagnosis:Screening for genitourinary condition [Z13.89] Order(s):URINALYSIS, DIPSTICK ONLY [SQUA] Order #: [id number]. #:[id number] Prescriptions as of 11/22/2020 Sig: LABETALOL ORAL POTASSIUM CHLORIDE ER 10 MEQ * SIMVASTATIN ORAL AMLODIPINE 10 MG-BENAZEPRIL 4* TAKE 1 CAPSULE BY MOUTH ONCE * Problem List As Of Date 11/22/2020 Noted Resolved Prostate cancer (HCC) [C61] 10/11/2020 Encounter Status:Closed by ShoeSize.Me, PRODUSER on 11/25/20 [facility] Progress note 11-22-2020 Note Date & Type Note Facility 11-22-2020 Note HNO ID: [id number] Author: Kavya Gonzalez APRN.SHELLACKER Service: ? Author Type: Nurse Practitioner Type: Progress Notes Filed: 11/22/2020 11:15 AM Note Text: Chief Complaint: follow up prostate cancer Clinic note from 10/11/2020 copied and updated. HPI: Heriberto Dupont is a 70 year old male with hx of HTN and HLD on for prostate cancer who presents for follow up evaluation. Family hx of prostate cancer: Yes, in father and older brother. 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 Also with indeterminate left iliac bone lesion. He is s/p MRI fusion prostate biopsy on 11/12/2020, which revealed focal HGPIN and benign tissue. F/u MRI pelvis ortho revealed bone islands with no concerning marrow replacing lesions. Interval Hx: Overall, he reports doing well. No issues after biopsy. No fever/chills. Voiding without difficulty- no dysuria. Gross hematuria after biopsy gradually improving. LABS 02/06/2020 PSA 1.67 ng/mL Surgical Pathology 11/12/2020 FINAL DIAGNOSIS 1. Left base, left mid, left apex, prostate, biopsy (A-C) - Benign prostatic parenchyma. 2. Right base, prostate, biopsy (D) - Focal high-grade prostatic intraepithelial neoplasia. 3. Right mid, right apex, T1-left apex/mid, postlat PZ prostate, biopsy (E-G) - Benign prostatic parenchyma. IMAGING MRI PELVIS ORTHO WO IVCON 11/21/2020 IMPRESSION: BONE ISLANDS. ?NO CONCERNING MARROW REPLACING LESIONS. MRI PROSTATE WO/W IVCON 10/02/2020 IMPRESSION: PI-RADS 4 LEFT 0.8 CM PERIPHERAL ZONE LESION, DESCRIBED. NO LYMPHADENOPATHY. LEFT ILIAC BONE 1.3 CM LESION IS INDETERMINATE. ?CORRELATION WITH PRIOR STUDIES OR DEDICATED MRI IS RECOMMENDED FOR FURTHER EVALUATION. REVIEW OF SYSTEMS GENERAL:No weight loss, malaise or fevers., SEE HPI GENITOURINARY: No history of dysuria, frequency or incontinence The remainder of the ROS was negative. HISTORIES PAST MEDICAL HISTORY Diagnosis Date - HLD (hyperlipidemia) - HTN (hypertension) - Prostate cancer (HCC) No family history on file. SOCIAL HISTORY Social History Tobacco Use - Smoking status: Never Smoker - Smokeless tobacco: Never Used Substance Use Topics - Alcohol use: Not on file - Drug use: Not on file PHYSICAL EXAMINATION General appearance: Well appearing, alert, in no acute distress and well-hydrated, well nourished Lungs: Clear to auscultation no wheezing or rhonchi Heart: RRR without murmur, gallop, or rubs. No ectopy Abdomen: Normal abdominal exam, Abdomen soft, non-tender. Bowel sounds normal. No masses, organomegaly, Negative CVA tenderness Genitourinary: deferred Assessment (C61) Prostate cancer (HCC) (primary encounter diagnosis) Heriberto Dupont is a 70 year old male with hx of HTN and HLD on for prostate cancer who presents for follow up evaluation. He was initially diagnosed in 2012. MRI prostate (10/02/2020) revealed PI-RADS 4 lesion. Also with indeterminate left iliac bone lesion. He is s/p MRI fusion prostate biopsy on 11/12/2020, which revealed focal HGPIN and benign tissue. F/u MRI pelvis ortho revealed bone islands with no concerning marrow replacing lesions. Biopsy and imaging results discussed with patient. Recommended continued . Plan -Continue - check PSA in 1 month and in 8 months. Standing order placed and he will complete at local lab and have results faxed to [facility]. -Follow up virtual visit with Dr. Carrera in 8 months with PSA prior to visit. Discussed with Dr. Carrera. Kavya Gonzalez APRN.SHELLACKER [facility] Progress note 11-21-2020 Note Date & Type Note Facility 11-21-2020 Note HNO ID: [id number] Author: RT Judy(Kiana) Service: Radiology Author Type: Concrete Analyst Type: Progress Notes Filed: 11/21/2020 6:11 PM Note Text: Radiology Service Progress Note PATIENT NAME: Heriberto Dupont DATE OF SERVICE: November 21, 2020 TIME: 6:10 PM PATIENT IDENTITY VERIFICATION COMPLETED USING TWO (2) IDENTIFIERS: Name and Date of confirmed by patient verbally and Name and Date of confirmed by identification band. FALL SCREENING: Has the patient had 2 falls in the last year or 1 fall with injury or currently using an Ambulatory Assistive Device (Walker, Cane, Wheelchair, Crutches, etc.)? No PATIENT GENDER DATA: Male PATIENT RELEVANT IMPLANT DATA REVIEWED: Yes RADIOLOGY DEPARTMENT: MR; Exam(s) Completed: Lower MSK: Pelvis, bilateral PERIPHERAL IV DATA: Not applicable SIGNED BY: RT Judy(Kiana) November 21, 2020 6:10 PM [facility] Progress note 11-12-2020 Note Date & Type Note Facility 11-12-2020 Note HNO ID: [id number] Author: Inez Carrera MD Service: ? Author Type: Physician Type: Progress Notes Filed: 12/29/2020 3:59 PM Note Text: MR-US Fusion with Guided US for Prostate Biopsy Report Name: Heriberto Dupont MR#: [id number] Date: November 12, 2020 DIAGNOSIS: Prostate Cancer on Active Surveillance SURGEON: Inez Carrera MD TRANSRECTAL ULTRASOUND: ? Prostate Volume: 37cc. ? PSA density: 0.04 ng/cc ? No hypoechogenic areas suggestive of cancer are seen. ? Seminal vesicles: Normal ? Documentation images were taken. Yes ULTRASONIC GUIDED PROSTATE BIOPSY: ? Prostate anesthetic block was performed using lidocaine. ? Biopsies of abnormal appearing areas were performed. ? Random biopsies were taken from the base, mid-gland and apex bilaterally. ? Total number of biopsies taken. 10 total- 4 from target, 6 random. PROCEDURE DESCRIPTION: Informed consent was obtained and signed. The patient was placed in the left lateral decubitus position. The transrectal ultrasound probe was placed in the rectum. Imaging in transverse and longitudinal views was done with the findings as indicated. Multiple biopsies of the prostate via needle were obtained using ultrasonic guidance into the rectum. Post procedure instructions were given to the patient in detail per post op instruction sheet. Patient will be contacted with the biopsy result when available. If performed: 3D Rendering W/Postprocess for MR-US FUSION PROCEDURE DESCRIPTION: Due to the complex morphology of prostate cancer, targeted biopsy of suspected prostate cancers was required. These lesions were identified using magnetic resonance-ultrasound (MR-US) fusion based on 3D rotational segmentation, landmark selection and multi-planar reconstruction of the prostate gland using the AmpexNav system. Identification of regions of interest were performed in an offline workstation and personally reviewed by the urologist prior to the procedure. -F/u on the to discuss pathology in the afternoon with Mri pelvis done prior. Scribe Attestation: By signing my name below, Ana María Siegel, attest that this documentation has been prepared under the direction and in the presence of Dr. Inez Carrera MD. Electronically signed: Joselyn Ludwig, November 12, 2020 10:42 AM Inez Siegel MD, personally performed the services described in this documentation. All medical record entries made by the scribe were at my direction and in my presence. I have reviewed the chart and discharge instructions (if applicable) and agree that the record reflects my personal performance and is accurate and complete. Inez Carrera MD [facility] Clinical Note 10-11-2020 Note Date & Type Note Facility 10-11-2020 Note Patient Outreach (UR OLMN) HERIBERTO DUPONT ([id number]) 1950 M Date Time Provider Department 10/11/20 MARC LAUGHLIN During your visit today, we recorded the following information about you: Allergies As of Date: 10/11/2020 (No Known Allergies) Date Reviewed: 10/11/2020 Reviewed by: Marc Laughlin MD, PhD - Fully Assessed Visit Diagnosis:Screening for genitourinary condition [Z13.89] Order(s):URINALYSIS, DIPSTICK ONLY [SQUA] Order #: [id number]. #:[id number] Prescriptions as of 10/11/2020 Sig: LABETALOL ORAL POTASSIUM CHLORIDE ER 10 MEQ * SIMVASTATIN ORAL AMLODIPINE 10 MG-BENAZEPRIL 4* TAKE 1 CAPSULE BY MOUTH ONCE * Problem List As Of Date 10/11/2020 Noted Resolved Prostate cancer (HCC) [C61] 10/11/2020 Encounter Status:Closed by ShoeSize.Me, PRODUSER on 10/14/20 [facility] Progress note 10-02-2020 Note Date & Type Note Facility 10-02-2020 Note HNO ID: [id number] Author: RT Sara(R) Service: Radiology Author Type: Concrete Analyst Type: Progress Notes Filed: 10/02/2020 12:34 PM Note Text: Radiology Service Progress Note PATIENT NAME: Heriberto Dupont DATE OF SERVICE: October 02, 2020 TIME: 12:34 PM PATIENT IDENTITY VERIFICATION COMPLETED USING TWO (2) IDENTIFIERS: Name and Date of confirmed by patient verbally and Name and Date of confirmed by identification band. FALL SCREENING: Has the patient had 2 falls in the last year or 1 fall with injury or currently using an Ambulatory Assistive Device (Walker, Cane, Wheelchair, Crutches, etc.)? No PATIENT GENDER DATA: Male PATIENT RELEVANT IMPLANT DATA REVIEWED: Yes RADIOLOGY DEPARTMENT: MR; Exam(s) Completed: Body: Prostate PERIPHERAL IV DATA: Site assessment: Clean,Dry and Intact, Site disposition Discontinued SIGNED BY: RT Sara(R) October 02, 2020 12:34 PM [facility] Progress note 10-02-2020 Note Date & Type Note Facility 10-02-2020 Note HNO ID: [id number] Author: Nichelle Rasheed RN Service: Radiology Author Type: Registered Nurse Type: Progress Notes Filed: 10/02/2020 11:46 AM Note Text: Radiology Service Progress Note DATE OF SERVICE: October 02, 2020 TIME: 11:42 AM PATIENT WEIGHT: 175 LBS PATIENT IDENTITY VERIFICATION COMPLETED USING TWO (2) STANDARD IDENTIFIERS: Name and Date of confirmed by patient verbally. FALL SCREENING: Has the patient had 2 falls in the last year or 1 fall with injury or currently using an Ambulatory Assistive Device (Walker, Cane, Wheelchair, Crutches, etc.)? No PATIENT GENDER DATA: Male ALLERGIES: Reviewed and unchanged CONTRAST ALLERGY: No EXAM: MRI - CONTRAST TYPE: GROUP II IV SITE: Ambulatory: A peripheral IV was started in the Left antecubital site with a Angio cath: 22 gauge. IV SITE APPEARANCE: Clean,Dry and Intact SIGNATURE: Nichelle Rasheed RN PATIENT NAME: Heriberto Dupont DATE: October 02, 2020 TIME: 11:42 AM [facility] Summary Purpose Family History No Family History Records FoundNo Family History Records FoundNo Family History Records Found Advance Directives No Advanced Directives Records FoundNo Advanced Directives Records FoundNo Advanced Directives Records Found Additional Source Comments Source Comments (unrecognize d section and content) In the event this informatio n is protected by the Federal Confidentiality of Alcohol and Drug Abuse Patient Records regulations: The Federal rules restrict any use of the information to criminally investigate or prosecute any alcohol or drug abuse patient.[facility] (unrecognized sect ion and content) No Status Records FoundNo Status Records FoundNo Status Records Found INFORMATION SOURCE (unrecogn ized section and content) DATE CREATED AUTHOR 07/07/2021 [facility] DATE CREATED AUTHOR AUTHOR'S ORGANIZ ATION 10/17/2022 [facility] DATE CREATED AUTHOR AUTHOR'S ORGANIZ ATION 08/19/2023 [facility] FOR RECORDS PERTAINING TO PATIENTS WHO ARE OR HAVE BEEN ENROLLED IN A CHEMICAL DEPENDENCY/SUBSTANCEABUSE PROGRAM, SOME INFORMATION MAY BE OMITTED. This clinical summary was aggregated from multiple sources. Caution should be exercised in using it in the provision of clinical care. This summary normalizes information from multiple sources, and as a consequence, information in this document may materially change the coding, format and clinical context of patient data. In addition, data may be omitted in some cases. CLINICAL DECISIONS SHOULD BE BASED ON THE PRIMARY CLINICAL RECORDS. [facility] link bird [facility]. provides no warranty or guarantee of the accuracy or completeness of information in this document.
== END 2023-10-12 13:10 | disposition home or self-care (01) ==
LOC: EC 13:10
PROVIDERS: PCP Internal Medicine; Visit Provider Physician Assistant
DX: M79.671 Pain in right foot (principal)
CPT/HCPCS: 73630

== ENCOUNTER 2023-10-26 10:12 | Outpatient (OUT) | payer MEDICARE, SELFPAY ==
--- NOTE | 2023-10-26 10:15 | VEIN_ITS ---
Patient Name: BALTAZAR DUPONT MR#: [id number] : 1950 Exam Date: 10/26/2023 Ordering Doctor: DR DEE DEE ALLAN M.D. RADIOLOGY REPORT PROCEDURE: [facility] EST [facility] - OFFICE VISIT INITIAL COMPARISON: None. PROGRESS NOTES: [age] year old male who presents with a 3 month history of lower extremity swelling and tenderness. The patient's left leg symptoms are worse than the right. There has been a progression of symptoms over time. This increases with prolonged leg dependency. The patient describes an improvement with rest, elevation, and compression socks. The patient denies any signs and symptoms to suggest arterial ischemia. The patient describes a family history of coronary artery disease. The patient has drinking and smoking history of : None. Patient has a past medical history significant for hypertension and hyperlipidemia. The patient denies a history of deep venous thrombus or pulmonary embolus. See separate history and physical for medication list. No prior treatment for varicose or spider veins. Occasional use of compression stockings. After review of nurse notes, history and physical exam I discussed at length the pathophysiology of venous hypertension and possible treatments, therapies and strategies available. We discussed at length the importance of elevating the lower extremities above the level of the heart, increased physical activity and compression stocking use. Ultrasound venous reflux study performed today was discussed at length with the patient. The report demonstrates no abnormal vein dilation or significant reflux. PHYSICAL EXAM: The right leg demonstrates no appreciable varicosities, no spider veins, no ulceration, mild-moderate edema, no skin discoloration. The left leg demonstrates no varicosities, no spider veins, no ulceration, mild-moderate edema, no skin discoloration. Both thighs, legs and feet were symmetrically warm to the touch. Good posterior tibial and dorsalis pedis pulses were present bilaterally. VEIN/[facility] EST Comprehensive IMPRESSION: 1. No venous insufficiency 2. No significant lower extremity varicose veins 3. Mild-moderate bilateral lower extremity subcutaneous edema 4. No known flow significant arterial disease 5. CEAP: C0, EN, AN, PN PLAN: 1. More consistent use of compression stockings 2. Elevated legs and increased physical activity for symptomatic relief 3. Follow-up with primary care physician. Nurse notes, history and physical were reviewed and confirmed, see attached forms. The nurse was present throughout the physical exam and consultation Dictated by: Will Quinonez M.D. on 10/26/2023 at 12:25 Approved by: Will Quinonez M.D. on 10/26/2023 at 12:30
--- NOTE | 2023-10-26 10:15 | VEIN_ITS ---
Patient Name: BALTAZAR DUPONT MR#: [id number] : 1950 Exam Date: 10/26/2023 Ordering Doctor: DR DEE DEE ALLAN M.D. RADIOLOGY REPORT PROCEDURE: VC EXT VENOUS REFLUX CONSUELO LMTD COMPARISON: None. INDICATIONS: Pain due to varicose veins of bilateral legs I83.813 TECHNIQUE: Duplex imaging of the lower extremity to assess the deep and superficial venous system for the presence of deep or superficial venous incompetence and to document the location and severity of disease. The study includes evaluation of the great saphenous vein (GSV), anterior accessory saphenous vein (AASV) and small saphenous vein (SSV). Patient scanned in reverse Trendelenburg and standing. FINDINGS: RIGHT LOWER EXTREMITY: Saphenofemoral Junction Reflux: YesNo 5.6mm sec GSV: Diam (mm) Reflux/ Time (sec) Proximal Thigh 5.5 No Mid Thigh 2.0 No Distal Thigh 2.5 No Prox Calf 0.9 No Mid Calf 1.9 No Saphenopopliteal Junction Reflux: 3.2mm No SSV: Proximal Calf 1.8 No Mid Calf 2.2 No AASV: Not present Proximal Thigh Mid Thigh Distal Thigh Thrombi: No acute or chronic thrombus visualized Compressibility: Normal Flow: Normal Preforator: No patent perforators. Tech Note: Patent varicose vein mid/med thigh 1.0mm with 0s reflux. Patent varicose vein 2.4mm with 0s reflux. LEFT LOWER EXTREMITY: Saphenofemoral Junction Reflux: No 5.6 mm sec GSV: Diam (mm) Reflux/Time (sec) Proximal Thigh 3.0 No Mid Thigh 3.3 No Distal Thigh 2.7 No Prox Calf 2.4 Mid Calf 2.8 No Saphenopopliteal Junction Relux: 2.5 mm Yes 0.7 SSV: Proximal Calf 2.1 No Mid Calf 2.3 No AASV: Not present Proximal Thigh Mid Thigh Distal Thigh Thrombi: No acute or chronic thormbus visualized Compressibility: Normal Flow: Normal Change Release Manager: No patent perforators visualized Tech Note: No patent varicose veins . CONCLUSION: 1. No abnormal dilation or significant reflux within the lower extremity superficial veins. Dictated by: Will Quinonez M.D. on 10/26/2023 at 11:30 Approved by: Will Quinonez M.D. on 10/26/2023 at 12:25
== END 2023-10-26 10:13 | disposition home or self-care (01) ==
LOC: VC 10:12
PROVIDERS: PCP Internal Medicine; Visit Provider Podiatrist Foot & Ankle Surgery
DX: I83.813 Varicose veins of bilateral lower extremities with pain (principal); M79.671 Pain in right foot; R60.9 Edema, unspecified
CPT/HCPCS: 93970; G0463

== ENCOUNTER 2024-10-31 08:54 | Outpatient (OUT) | payer MEDICARE, SELFPAY ==
--- OUTSIDE RECORDS SUMMARY | 2023-10-12 09:15 | XMS_ITS ---
Author Organization The [facility] in [place] Address [address] [place] [address] Care Team Providers Care Wire Sawyer Name Role Phone Martin FISHER, Pawan Primary Care Provider UnavailAustin Zepeda Unavailable [phone] Allergies No Known Allergies Results Component Value Reference Range Notes XR Foot RT (3 views) * Reviewed date:10/15/2023 08:29:25 AM Interpretation: Performing Lab: Notes/Report: Reason For Referral Reason venous insuffiency, edema Diagnosis 1 Right foot pain (M79 .671) Referral Organization [facility] (PODIATRY) Referring Provider First Name Austin Referring Provider Last Name Kellie Referring Provider Speciality Podiatry Referred Provider Jonathan Pereira Referred Provider Specialty Vascular Alexander liang Referral Priority Routine Referral Appointment Date 10/26/2023 REASON FOR VISIT [place] on RT foot Medications Medication SIG (Take, Route, Frequency, Duration) Notes Start Date End Date Status Doxycycline Hyclate 100 MG Oral for 10 Days Not-Taking Doxycycline Hyclate 100 MG Oral for 10 Days Not-Taking Doxycycline Hyclate 100 MG Oral for 10 Days Active Labetalol HCl 300 MG Oral for 90 Days Active Simvastatin 20 MG TAKE 1 TABLET BY ONCE DAILY. TAKE AT THE SAME TIME EACH DAY Oral for 90 Days Active Potassium Chloride ER 10 MEQ Oral for 90 Days Active Potassium Chloride ER 10 MEQ TAKE 1 TABLET BY MOUTH ONCE DAILY IN THE MORNING WITH FOOD Oral for 90 Days Active amLODIPine Besy-Benazepril HCl 10-40 MG TAKE 1 CAPSULE BY MOUTH IN THE MORNING Oral for 90 Days Active Social History Tobacco Use: Social History Observation Description Date Details (start date - stop date) Never Smoker NA - NA Tobacco Control (Standard) Question Answer Notes Tobacco use: Nonsmoker Problems Problem Type SNOMED Code ICD Code Onset Dates Problem Status W/U Status Risk Notes Problem 447035357 Other hammer toe(s) (acquired), right foot (M20.41) Active confirmed Problem High blood cholesterol (E78.00) Active confirmed Vital Signs Weight 170 lbs 10/12/2023 Height 65 in 10/12/2023 Temperature 98.8 degrees Fahrenheit 10/12/19 24 Heart Rate 70 /min 10/12/2023 BMI 28.29 kg/m2 10/12/2023 Oximetry 98 % 10/12/2023 Encounters Encounter Location Date Provider Diagnosis The [facility] (PODIATRY) [address] [place] [address] [place] [address] 10/12/2023 Austin Hopkins Corns and callosities L84 ; Other hammer toe(s) (acquired), right foot M20.41 ; Right foot pain M79.671 and Localized edema R60.0 Assessments Encounter Date Diagnosis (ICD Code) Assessment Notes Treatment Notes Treatment Clinical Notes Section Notes 10/12/2023 Corns and callosities (ICD-10 - L84) The patient is a pleasant 73-year-old gentleman who presents for evaluation of a painful corn on the right 5th medial toe. The patient was advised that the corn is secondary to the 5th toe rubbing against the 4th toe PIPJ. We discussed nonsurgical measures including occasional callus paring, toe sleeves, or toe spacers. We also discussed surgical intervention such as condylectomy of the 4th toe. The patient would eventually like to pursue surgical intervention, but summertime is approaching and he has a very large yard which he maintains by himself. The lesion was pared using a dermal curette without incident as a courtesy. Follow-up at his discretion. The patient is happy with the plan. 10/12/2023 Other hammer toe(s) (acquired), right foot (ICD-10 - M20.41) 10/12/2023 Right foot pain (ICD-10 - M79.671) 10/12/2023 Localized edema (ICD-10 - R60.0) Plan Of Treatment Treatment Notes Assessment Notes Corns and callosities The patient is a pleasant 73-year-old gentleman who presents for evaluation of a painful corn on the right 5th medial toe. The patient was advised that the corn is secondary to the 5th toe rubbing against the 4th toe PIPJ. We discussed nonsurgical measures including occasional callus paring, toe sleeves, or toe spacers. We also discussed surgical intervention such as condylectomy of the 4th toe. The patient would eventually like to pursue surgical intervention, but summertime is approaching and he has a very large yard which he maintains by himself. The lesion was pared using a dermal curette without incident as a courtesy. Follow-up at his discretion. The patient is happy with the plan. Referrals Referral Date Details 10/12/2023 10/12/2023, venous i nsuffiency, edema, Jonathan [place] Progress Notes * Heriberto DUPONTDOB:[birth year] (73 yo M)Acc No.[id number]:10/12/2023 New Patient Patient: Heriberto ONEILL Provider: Zoe Hopkins DPM, MS :1950 A ge:73 Y S ex:Male Date:10/12/2023 Address:[address] [place], [place] [id number] Pcp:Pawan Sullivan MD Check In:12:58 PM ESTCheck O ut:01:40 PM EST Subjective: * Chief Complaints: * C orn on RT foot * HPI: G eneral: Pt has had a corn on his right foot for years. Dr sullivan has shaved it down in the past but wanted him to see a attendant arcade. He stated it is painful at times. He does have bilateral foot swelling at times, which has happened in the last few months. * ROS: G eneral/Constitutional: Chills d enies. F ever d enies. W eight gain?denies. W eight loss d enies. S kin: Skin Ulcers d enies. S kin lesion(s) d enies. ? C ardiovascular: Difficulty breathing on exertion d enies. L eg cramps?denies. E jg d enies. C hest pain d enies. R espiratory: Difficulty breathing d enies. D yspnea d enies.?Cough d enies. G astrointestinal: Diarrhea d enies. N ausea d enies. V omiting?denies. M usculoskeletal: Bone/Joint Symptoms d enies. C shelter Pain d enies.?Leg cramps d enies. N eurologic: Numbness d enies. T ingling d enies . G ait abnormality d enies. ? H ematology: Anemia D enies. E asy bruising d enies. ? A ll Other Systems: Review of Systems (ROS) S [facility] for details,All others negative except those mentioned in HPI. * Active Problem List E78.00 High blood cholester ol Modified On:10/12/2023W/U Status:confirmed M20.41 Other hammer toe(s) (acquired), right foot Modified On:10/12/2023/U Status:confirmed * Medical History: * Surgical History: D enies Past Surgical History * Hospitalization/Major Diagno stic Procedure: D enies Past Hospitalization * Family History: N on-Contributory. * Social History: T obacco Use: T obacco Control (Standard) T obacco use: N onsmoker * Medications: T akingamLODIPine Besy-Benazepril HCl 10-40 MG Capsule TAKE 1 CAPSULE BY MOUTH IN THE MORNING Oral Doxycycline Hyclate 100 MG Tablet Oral Labetalol HCl 300 MG Tablet Oral Potassium Chloride ER 10 MEQ Tablet Extended Release Oral Potassium Chloride ER 10 MEQ Tablet Extended Release TAKE 1 TABLET BY MOUTH ONCE DAILY IN THE MORNING WITH FOOD Oral Simvastatin 20 MG Tablet TAKE 1 TABLET BY MOUTH ONCE DAILY. TAKE AT THE SAME TIME EACH DAY Oral Taking amLODIPine Besy-Benazepril HCl 10-40 MG Capsule TAKE 1 CAPSULE BY MOUTH IN THE MORNING Oral Taking Doxycycline Hyclate 100 MG Tablet Oral Taking Labetalol HCl 300 MG Tablet Oral Taking Potassium Chloride ER 10 MEQ Tablet Extended Release Oral Taking Potassium Chloride ER 10 MEQ Tablet Extended Release TAKE 1 TABLET BY MOUTH ONCE DAILY IN THE MORNING WITH FOOD Oral Taking Simvastatin 20 MG Tablet TAKE 1 TABLET BY MOUTH ONCE DAILY. TAKE AT THE SAME TIME EACH DAY Oral Not-Taking/PRNDoxycycline Hyclate 100 MG Tablet Oral Doxycycline Hyclate 100 MG Tablet Oral Not-Taking/PRN Doxycycline Hyclate 100 MG Tablet Oral Not-Taking/PRN Doxycycline Hyclate 100 MG Tablet Oral * Allergies: N .K.D.A.no[Allergies Verified] Objective: * Vitals: W t:170lbs, Ht: 65 in, Temp:98.8F, HR:70/min, BMI:28.29Index, Pain scale:21-10, Oxygen sat %:98%, Ht-cm: 165.1 cm, Wt-k.11 kg. * Examination: P odiatry Examination: SKIN: s kin intact, n o sign of infection Hyperkeratotic lesion noted on the medial aspect of the right 5th toe, consistent with corn. MUSCULOSKELETAL: N o pain on palpation, Range of motion of ankle and foot is within normal limits, Muscle strength is 5/5 in all planes Lesser toes are rectus. NEUROLOGICAL: L ight touch sensation is intact in all nerve distributions, Negative Tinel sign. VASCULAR: P alpable pedal pulses bilaterally, Brisk capillary refill, No calf pain on squeeze 2+ edema of both lower legs and ankles. X -ray 3 view foot obtained in the office today and reviewed: No evidence of acute trauma or stress fracture. No significant bony deformity noted of the lesser toes. Assessment: * Assessment: 1. C orns and callosities - L84 (Primary) 2 . O ther hammer toe(s) (acquired), right foot - M20.41 3 . R ight foot pain - M79.671 4 . L ocalized edema - R60.0 Plan: * Treatment: 2. R ight foot pain I maging: XR Foot RT (3 views) * (Performed Date - 10/12/2023) Referral To:Joanthan Pereira Vascular Surgery Reason:venous insuffiency, edema * Procedure Codes: * Preventive Medicine: Screenings/Counseling: B IA ACTION PLAN Above Normal BMI Follow-up D ietary management education, guidance, and counseling * * Sign off status: Completed Visit Status: C HK (Check Out) true * Provider: Zoe Hopkins DPM, MS Date: 10/12/2023 Generated for Christine daugherty/Pablo/Darlynitting on: 10/31/2024 08:59 AM EDT History and Physical Notes * HPI (History of Present Illness) Category Sub-Category Detail Notes Category Not es General Pt has had a co rn on his right foot for years. Dr sullivan has shaved it down in the past but wanted him to see a attendant arcade. He stated it is painful at times. He does have bilateral foot swelling at times, which has happened in the last few months. Examination Category Sub-Category Detail Notes Category Not es Podiatry Examination SKIN: skin intact, no sign of infe ction Hyperkeratotic lesion noted on the medial aspect of the right 5th toe, consistent with corn X-ray 3 view foot obtained in the office today and reviewed: No evidence of acute trauma or stress fracture. No significant bony deformity noted of the lesser toes MUSCULOSKELETAL: No pain on palpation , Range of motion of ankle and foot is within normal limits, Muscle strength is 5/5 in all planes Lesser toes are rectus NEUROLOGICAL: Light touch sensatio n is intact in all nerve distributions, Negative Tinel sign VASCULAR: Palpable pedal pulse s bilaterally, Brisk capillary refill, No calf pain on squeeze 2+ edema of both lower legs and ankles Consultation Request Notes Referral Date Referring Provider Referred Provider Not 10/12/2023 Austin Hopkins David venous ins uffiency, edema
--- OUTSIDE RECORDS SUMMARY | 2024-10-31 08:59 | XMS_ITS | Encounter Summary ---
Author Organization [facility] Address [address] [facility] [place] [address] Care Team Providers Care Transportation Museum Helper Name Role Phone Pawan Salazar MD Unavailable [phone] Pawan Salazar MD Primary Care Provider [phone] Encounter Details Date Type Department Care Team (Late st Contact Info) Description 03/17/2024 Abstract [facility] [address] [facility] 110 [place] [phone] Pawan Salazar MD [address] [facility] 110 [place] [address] Social History Tobacco Use Types Packs/Day Years Used Date Smoking Tobacco: Never Smokeless Tobacco: Never Alcohol Use Standard Drinks/Week Comments Not Asked 0 (1 standard drink = 0.6 oz pure alcohol) caffeine intake: 1-2 cups per day,coffee:soda Sex and Gender Information Value Date Recorded Sex Assigned at Not on file Legal Sex Male 6:42 PM EDT Gender Identity Not on file Sexual Orientation Not on file documented as of this encounter Plan of Treatment Not on file documented as of this encounter Visit Diagnoses Not on filedocumented in this encounter Care Teams Transportation Museum Helper Relationship Specialty Start Date End Date Pawan Salazar MD [address] [facility] [address] [place] [address] PCP - ACO Reach 10/29/22 Pawan Salazar MD [address] [facility] 110 [place] [address] PCP - General Internal Medicine 10/13/22 documented as of this encounter
--- OUTSIDE RECORDS SUMMARY | 2024-10-31 08:59 | XMS_ITS | Encounter Summary ---
Author Organization [facility] Address [address] [place] [address] Care Team Providers Care Motor Vehicle Escort Driver Name Role Phone Pawan Salazar MD Unavailable [phone] Pawan Slaazar MD Primary Care Provider [phone] Encounter Details Date Type Department Care Team (Late st Contact Info) Description 10/26/2023 Clinisync Result Encounter [facility] External Department Unsolicited Provider, Generic External Data Social History Tobacco Use Types Packs/Day Years [...] on file documented as of this encounter Procedures Procedure Name Priority Date/Time Associated Diagnosis Comments VC EXT VENOUS REFLUX CONSUELO LMTD 10/26/2023 12:25 PM EDT documented in this encounter Results * VC EXT VENOUS REFLUX CONSUELO LMTD (10/26/2023 12:25 PM EDT) Anatomical Region Laterality Modality Other 10/26/2023 12:2 5 PM EDT Narrative 10/26/2023 12:26 PM EDT [facility] [address] [place] [address] Vein Report Signed Patient: BALTAZAR DUPONT MR#: [id number] : 1950 Acct:[id number] Age/Sex: 73 / M ADM Date: 10/26/23 Loc: VC Attending Dr: Austin Hopkins D.P.M. Ordering Physician: Dee Dee Allan M.D. Date of Service: 10/26/23 Procedure(s): VC EXT Venous Reflux CONSUELO LMTD Accession Number(s): [id number] cc: PAWAN SALAZAR ; Dee Dee Allan M.D. Patient Name: BALTAZAR DUPONT MR#: [id number] : 1950 Exam Date: 10/26/2023 Ordering Doctor: DR DEE DEE ALLAN M.D. RADIOLOGY REPORT PROCEDURE: VC EXT VENOUS REFLUX CONSUELO LMTD COMPARISON: None. INDICATIONS: Pain due to varicose veins of bilateral legs I83.813 TECHNIQUE: Duplex imaging of the lower extremity to assess the deep and superficial venous system for the presence of deep or superficial venous incompetence and to document the location and severity of disease. The study includes evaluation of the great saphenous vein (GSV), anterior accessory saphenous vein (AASV) and small saphenous vein (SSV). Patient scanned in reverse Trendelenburg and standing. FINDINGS: RIGHT LOWER EXTREMITY: Saphenofemoral Junction Reflux: YesNo 5.6mm sec GSV: Diam (mm) Reflux/ Time (sec) Proximal Thigh 5.5 No Mid Thigh 2.0 No Distal Thigh 2.5 No Prox Calf 0.9 No Mid Calf 1.9 No Saphenopopliteal Junction Reflux: 3.2mm No SSV: Proximal Calf 1.8 No Mid Calf 2.2 No AASV: Not present Proximal Thigh Mid Thigh Distal Thigh Thrombi: No acute or chronic thrombus visualized Compressibility: Normal Flow: Normal Preforator: No patent perforators. Tech Note: Patent varicose vein mid/med thigh 1.0mm with 0s reflux. Patent varicose vein 2.4mm with 0s reflux. LEFT LOWER EXTREMITY: Saphenofemoral Junction Reflux: No 5.6 mm sec GSV: Diam (mm) Reflux/Time (sec) Proximal Thigh 3.0 No Mid Thigh 3.3 No Distal Thigh 2.7 No Prox Calf 2.4 Mid Calf 2.8 No Saphenopopliteal Junction Relux: 2.5 mm Yes 0.7 SSV: Proximal Calf 2.1 No Mid Calf 2.3 No AASV: Not present Proximal Thigh Mid Thigh Distal Thigh Thrombi: No acute or chronic thormbus visualized Compressibility: Normal Flow: Normal Centerless Grinding Machine Adjuster: No patent perforators visualized Tech Note: No patent varicose veins . CONCLUSION: 1. No abnormal dilation or significant reflux within the lower extremity superficial veins. Dictated by: Will Quinonez M.D. on 10/26/2023 at 11:30 Approved by: Will Quinonez M.D. on 10/26/2023 at 12:25 Dictated By: Will Quinonez M.D. Signed By: 10/26/23 1226 DD/ 1225 TD/TT: Crozer Operator: Procedure Note Radiology, Radiologist, MD - 10/26/2023 [place] [address] Vein Report Signed Patient: BALTAZAR DUPONT AMR#: [id number] : 1950Acct:[id number] Age/Sex: 73 / MADM Date: 10/26/23 Loc: VC Attending Dr: Austin Hopkins D.P.M. Ordering Physician: Dee Dee Allan M.D. Date of Service: 10/26/23 Procedure(s): VC EXT Venous Reflux CONSUELO LMTD Accession Number(s): [id number] cc: PAWAN SALAZAR ; Dee Dee Allan M.D. Patient Name: BALTAZAR DUPONT MR#: [id number] : 1950 Exam Date: 10/26/2023 Ordering Doctor: DR DEE DEE ALLAN M.D. RADIOLOGY REPORT PROCEDURE: VC EXT VENOUS REFLUX CONSUELO LMTD COMPARISON: None. INDICATIONS: Pain due to varicose veins of bilateral legs I83.813 TECHNIQUE: Duplex imaging of the lower extremity to assess the deepand superficial venous system for the presence of deep or superficial venous incompetence and to document the location and severity of disease. Thestudy includes evaluation of the great saphenous vein (GSV), anterior accessory saphenous vein (AASV) and small saphenous vein (SSV). Patient scanned in reverse Trendelenburg and standing. FINDINGS: RIGHT LOWER EXTREMITY: Saphenofemoral Junction Reflux: YesNo 5.6mm sec GSV: Diam (mm) Reflux/ Time (sec) Proximal Thigh 5.5 No Mid Thigh 2.0 No Distal Thigh 2.5 No Prox Calf 0.9 No Mid Calf 1.9 No Saphenopopliteal Junction Reflux: 3.2mm No SSV: Proximal Calf 1.8 No Mid Calf 2.2 No AASV: Not present Proximal Thigh Mid Thigh Distal Thigh Thrombi: No acute or chronic thrombus visualized Compressibility: Normal Flow: Normal Preforator: No patent perforators. Tech Note: Patent varicose vein mid/med thigh 1.0mm with 0s reflux. Patent varicose vein 2.4mm with 0s reflux. LEFT LOWER EXTREMITY: Saphenofemoral Junction Reflux: No 5.6 mm sec GSV: Diam (mm) Reflux/Time (sec) Proximal Thigh 3.0 No Mid Thigh 3.3 No Distal Thigh 2.7 No Prox Calf 2.4 Mid Calf 2.8 No Saphenopopliteal Junction Relux: 2.5 mm Yes 0.7 SSV: Proximal Calf 2.1 No Mid Calf 2.3 No AASV: Not present Proximal Thigh Mid Thigh Distal Thigh Thrombi: No acute or chronic thormbus visualized Compressibility: Normal Flow: Normal Centerless Grinding Machine Adjuster: No patent perforators visualized Tech Note: No patent varicose veins . CONCLUSION: 1. No abnormal dilation or significant reflux within the lower extremity superficial veins. Dictated by: Will Quinonez M.D. on 10/26/2023 at 11:30 Approved by: Will Quinonez M.D. on 10/26/2023 at 12:25 Dictated By: Will Quinonez M.D. Signed By:10/26/23 1226 DD/ 1225 TD/TT: Crozer Operator: Generic External Data Provider [facility] Final Result documented in this encounter Visit Diagnoses Not on filedocumented in this encounter Care Teams Motor Vehicle Escort Driver Relationship Specialty Start Date End Date Pawan Salazar MD [address] [facility] 110 [place] [address] PCP - ACO Reach 10/29/22 Pawan Salazar MD [address] [facility] 110 [place] [address] PCP - General Internal Medicine 10/13/22 documented as of this encounter
--- OUTSIDE RECORDS SUMMARY | 2024-10-31 08:59 | XMS_ITS | Encounter Summary ---
Author Organization [facility] Address [address] [facility] [place] [address] Care Team Providers Care Size Worker Name Role Phone Pawan Salazar MD Unavailable [phone] Pawan Salazar MD Primary Care Provider [phone] Reason for Visit * Reason Comments Med Refill Encounter Details Date Type Department Care Team (Late st Contact Info) Description 03/02/2024 Refill [facility] [address] [facility] 110 [place] [phone] Pawan Salazar MD [address] [facility] 110 [place], [place] [id number] Benign essential hypertension (CMS/HCC) Social History Tobacco Use Types Packs/Day Years [...] on file documented as of this encounter Miscellaneous Notes * Telephone Encounter - BHARATH Aiken - 03/03/2024 8:07 AM EDT Please help pt get set up for Medicare Wellness Visit. documented in this encounter Plan of Treatment Not on file documented as of this encounter Visit Diagnoses Diagnosis Benign essential hypertension (CMS/HCC) Essential hypertension, benign documented in this encounter Care Teams Size Worker Relationship Specialty Start Date End Date Pawan Salazar MD [address] [facility] 110 [place] [address] PCP - ACO Reach 10/29/22 Pawan Salazar MD [address] [facility] 110 [place] [address] PCP - General Internal Medicine 10/13/22 documented as of this encounter
--- OUTSIDE RECORDS SUMMARY | 2024-10-31 08:59 | XMS_ITS | Encounter Summary ---
Author Organization [facility] Address [address] [place] [address] Care Team Providers Care Veneer Cutter Name Role Phone Pawan Salazar MD Unavailable [phone] Pawan Salazar MD Primary Care Provider [phone] Encounter Details Date Type Department Care Team (Late st Contact Info) Description 10/18/2023 Abstract [facility] [address] [facility] 110 [place] [phone] Pawan Salazar MD [address] [facility] 110 [place] [address] Social History Tobacco Use Types Packs/Day Years [...] on filedocumented in this encounter Care Teams Veneer Cutter Relationship Specialty Start Date End Date Pawan Salazar MD [address] [facility] 110 [place] [address] PCP - ACO Reach 10/29/22 Pawan Salazar MD [address] [facility] [address] [place] [address] PCP - General Internal Medicine 10/13/22 documented as of this encounter
--- OUTSIDE RECORDS SUMMARY | 2024-10-31 08:59 | XMS_ITS | Encounter Summary ---
Author Organization [facility] Address [address] [facility] [place] [address] Care Team Providers Care Broadcast Producer Name Role Phone Pawan Salazar MD Unavailable [phone] Pawan Salazar MD Primary Care Provider [phone] Encounter Details Date Type Department Care Team (Late st Contact Info) Description 03/16/2024 Abstract [facility] [address] [facility] 110 [place] [phone] Pawan Salazar MD [address] [facility] 110 [place] [address] Social History Tobacco Use Types Packs/Day Years [...] on filedocumented in this encounter Care Teams Broadcast Producer Relationship Specialty Start Date End Date Pawan Salazar MD [address] [facility] 110 [place] [address] PCP - ACO Reach 10/29/22 Pawan Salazar MD [address] [facility] 110 [place] [address] PCP - General Internal Medicine 10/13/22 documented as of this encounter
--- OUTSIDE RECORDS SUMMARY | 2024-10-31 08:59 | XMS_ITS | Encounter Summary ---
Author Organization [facility] Address [address] [facility] [place] [address] Care Team Providers Care Sponge Clipper Name Role Phone Pawan Salazar MD Unavailable [phone] Pawan Salazar MD Primary Care Provider [phone] Encounter Details Date Type Department Care Team (Late st Contact Info) Description 03/11/2023 Abstract [facility] [address] [facility] 110 [place] [phone] Pawan Salazar MD [address] [facility] 110 [place] [address] Social History Tobacco Use Types Packs/Day Years [...] on filedocumented in this encounter Care Teams Sponge Clipper Relationship Specialty Start Date End Date Pawan Salazar MD [address] [facility] 110 [place] [address] PCP - ACO Reach 10/29/22 Pawan Salazar MD [address] [facility] 110 [place] [address] PCP - General Internal Medicine 10/13/22 documented as of this encounter
--- OUTSIDE RECORDS SUMMARY | 2024-10-31 08:59 | XMS_ITS | Encounter Summary ---
Author Organization [facility] Address [address] [place] [address] Care Team Providers Care Cell Support Operator Name Role Phone Pawan Salazar MD Unavailable [phone] Pawan Salazar MD Primary Care Provider [phone] Encounter Details Date Type Department Care Team [...] Procedure Name Priority Date/Time Associated Diagnosis Comments FACILITY EST COMPREHENSIVE 10/26/2023 12:30 PM EDT documented in this encounter Results * FACILITY EST COMPREHENSIVE (10/26/2023 12:30 PM EDT) Anatomical Region Laterality Modality Other 10/26/2023 12:3 0 PM EDT Narrative 10/26/2023 12:31 PM EDT [facility] [address] [place] [address] Vein Report Signed Patient: BALTAZAR DUPONT MR#: [id number] : 1950 Acct:[id number] Age/Sex: 73 / M ADM Date: 10/26/23 Loc: Attending Dr: Austin Hopkins D.P.M. Ordering Physician: Dee Dee Allan M.D. Date of Service: 10/26/23 Procedure(s): [facility] EST Comprehensive Accession Number(s): [id number] cc: PAWAN SALAZAR ; Dee Dee Allan M.D. Patient Name: BALTAZAR DUPONT MR#: [id number] : 1950 Exam Date: 10/26/2023 Ordering Doctor: DR DEE DEE ALLAN M.D. RADIOLOGY REPORT PROCEDURE: [facility] COMPREHENSIVE VEIN CENTER - OFFICE VISIT INITIAL COMPARISON: None. PROGRESS NOTES: [age] year old male who presents with a 3 month history of lower extremity swelling and tenderness. The patient's left leg symptoms are worse than the right. There has been a progression of symptoms over time. This increases with prolonged leg dependency. The patient describes an improvement with rest, elevation, and compression socks. The patient denies any signs and symptoms to suggest arterial ischemia. The patient describes a family history of coronary artery disease. The patient has drinking and smoking history of : None. Patient has a past medical history significant for hypertension and hyperlipidemia. The patient denies a history of deep venous thrombus or pulmonary embolus. See separate history and physical for medication list. No prior treatment for varicose or spider veins. Occasional use of compression stockings. After review of nurse notes, history and physical exam I discussed at length the pathophysiology of venous hypertension and possible treatments, therapies and strategies available. We discussed at length the importance of elevating the lower extremities above the level of the heart, increased physical activity and compression stocking use. Ultrasound venous reflux study performed today was discussed at length with the patient. The report demonstrates no abnormal vein dilation or significant reflux. PHYSICAL EXAM: The right leg demonstrates no appreciable varicosities, no spider veins, no ulceration, mild-moderate edema, no skin discoloration. The left leg demonstrates no varicosities, no spider veins, no ulceration, mild-moderate edema, no skin discoloration. Both thighs, legs and feet were symmetrically warm to the touch. Good posterior tibial and dorsalis pedis pulses were present bilaterally. VEIN/ Facility EST Comprehensive IMPRESSION: 1. No venous insufficiency 2. No significant lower extremity varicose veins 3. Mild-moderate bilateral lower extremity subcutaneous edema 4. No known flow significant arterial disease 5. CEAP: C0, EN, AN, PN PLAN: 1. More consistent use of compression stockings 2. Elevated legs and increased physical activity for symptomatic relief 3. Follow-up with primary care physician. Nurse notes, history and physical were reviewed and confirmed, see attached forms. The nurse was present throughout the physical exam and consultation Dictated by: Will Quinonez M.D. on 10/26/2023 at 12:25 Approved by: Will Quinonez M.D. on 10/26/2023 at 12:30 Dictated By: Will Quinonez M.D. Signed By: 10/26/23 1231 DD/ 1230 TD/TT: Felled Seam Operator: Procedure Note Radiology, Radiologist, MD - 10/26/2023 [place] [address] Vein Report Signed Patient: BALTAZAR DUPONT AMR#: [id number] : 1950Acct:[id number] Age/Sex: 73 / MADM Date: 10/26/23 Loc: Attending Dr: Austin Hopkins D.P.M. Ordering Physician: Dee Dee Allan M.D. Date of Service: 10/26/23 Procedure(s): [facility] Comprehensive Accession Number(s): [id number] cc: PAWAN SALAZAR ; Dee Dee Allan M.D. Patient Name: BALTAZAR DUPONT MR#: [id number] : 1950 Exam Date: 10/26/2023 Ordering Doctor: DR DEE DEE ALLAN M.D. RADIOLOGY REPORT PROCEDURE: [facility] VEIN CENTER - OFFICE VISIT INITIAL COMPARISON: None. PROGRESS NOTES: [age] year old male who presents with a 3 month history of lower extremity swelling and tenderness. The patient's left leg symptoms areworse than the right. There has been a progression of symptoms over time. This increases with prolonged leg dependency. The patient describes animprovement with rest, elevation, and compression socks. The patient denies any signsand symptoms to suggest arterial ischemia. The patient describes a family history of coronary artery disease. Thepatient has drinking and smoking history of : None. Patient has a past medical history significant for hypertension and hyperlipidemia. The patientdenies a history of deep venous thrombus or pulmonary embolus. See separate history and physical for medication list. No prior treatmentfor varicose or spider veins. Occasional use of compression stockings. After review of nurse notes, history and physical exam I discussed atlength the pathophysiology of venous hypertension and possible treatments,therapies and strategies available. We discussed at length the importance ofelevating the lower extremities above the level of the heart, increased physical activity and compression stocking use. Ultrasound venous reflux study performed today was discussed at lengthwith the patient. The report demonstrates no abnormal vein dilation orsignificant reflux. PHYSICAL EXAM: The right leg demonstrates no appreciable varicosities, no spider veins,no ulceration, mild-moderate edema, no skin discoloration. The left leg demonstrates no varicosities, no spider veins, no ulceration, mild-moderate edema, no skin discoloration. Both thighs, legs and feet were symmetrically warm to the touch. Good posterior tibial and dorsalis pedis pulses were present bilaterally. VEIN/VC Facility EST Comprehensive IMPRESSION: 1. No venous insufficiency 2. No significant lower extremity varicose veins 3. Mild-moderate bilateral lower extremity subcutaneous edema 4. No known flow significant arterial disease 5. CEAP: C0, EN, AN, PN PLAN: 1. More consistent use of compression stockings 2. Elevated legs and increased physical activity for symptomatic relief 3. Follow-up with primary care physician. Nurse notes, history and physical were reviewed and confirmed, seeattached forms. The nurse was present throughout the physical exam and consultation Dictated by: Will Quinonez M.D. on 10/26/2023 at 12:25 Approved by: Will Quinonez M.D. on 10/26/2023 at 12:30 Dictated By: Will Quinonez M.D. Signed By:10/26/23 1231 DD/ 1230 TD/TT: Felled Seam Operator: us Generic External Data Provider [facility] Final Result documented in this encounter Visit Diagnoses Not on filedocumented in this encounter Care Teams Cell Support Operator Relationship Specialty Start Date End Date Pawan Salazar MD [address] [place] [address] PCP - ACO Reach 10/29/22 Pawan Salazar MD [address] [facility] 110 [place] [address] PCP - General Internal Medicine 10/13/22 documented as of this encounter
--- OUTSIDE RECORDS SUMMARY | 2024-10-31 08:59 | XMS_ITS | Patient Health Record ---
Author Organization [facility] Address [address] [place] [address] Care Team Providers Care Nurse Receptionist Name Role Phone Pawan Salazar MD Primary Care Provider Unavailab le Allergies No Known Allergies Reason For Referral No Information Medications Medication SIG (Take, Route, Frequency, Duration) Notes Start Date End Date Status Doxycycline Hyclate 100 MG Oral for 10 Days Not-Taking Potassium Chloride ER 10 MEQ Oral for 90 Days Active Doxycycline Hyclate 100 MG Oral for 10 Days Not-Taking Doxycycline Hyclate 100 MG Oral for 10 Days Active Labetalol HCl 300 MG Oral for 90 Days Active Simvastatin 20 MG TAKE 1 TABLET BY ROB TH ONCE DAILY. TAKE AT THE SAME TIME [...] Problem Status W/U Status Risk Notes Problem [id number] Other hammer toe(s) (acquired), right foot (M20.41) Active confirmed Problem High blood cholesterol (E78.00) Active confirmed Plan Of Treatment No Information Insurance Providers Payer Name Payer Address Payer Phone Subscriber Number Group Number Insured Name Patient Relationship to Insured Coverage Start Date Coverage End Date MEDICARE [place] [address] [phone] [id number] MarlonHeriberto merino Self - patient is the insured [employer]LY [facility] [address] [address] [place] [address] [id number] Heriberto Kruse Self - patient is the insured Medical (General) History Medical History History ICD Code High blood cholesterol E78.00
--- OUTSIDE RECORDS SUMMARY | 2024-10-31 08:59 | XMS_ITS | Encounter Summary ---
Author Organization [facility] Address [address] [facility] [place] [address] Care Team Providers Care Aircraft Technician Name Role Phone Pawan Salazar MD Unavailable [phone] Pawan Salazar MD Primary Care Provider [phone] Reason for Visit * Reason Comments Med Refill Encounter Details Date Type Department Care Team (Late st Contact Info) Description 03/23/2024 Refill [facility] [address] [facility] 110 [place] [phone] Pawan Salazar MD [address] [facility] 110 [place], [place] [id number] Benign essential hypertension (CMS/HCC) Social History Tobacco [...] encounter Miscellaneous Notes * Telephone Encounter - Sharron Vigil LPN - 03/24/2024 9:55 AM EDT Needs appt. documented in this encounter Plan of Treatment Not on file documented as of this encounter Visit Diagnoses Diagnosis Benign essential hypertension (CMS/HCC) Essential hypertension, benign documented in this encounter Care Teams Aircraft Technician Relationship Specialty Start Date End Date Pawan Salazar MD [address] [facility] 110 [place] [address] PCP - ACO Reach 10/29/22 Pawan Salazar MD [address] [facility] [address] [place] [address] PCP - General Internal Medicine 10/13/22 documented as of this encounter
--- OUTSIDE RECORDS SUMMARY | 2024-10-31 08:59 | XMS_ITS | Clinical Summary ---
Author Organization [facility] Address [address] [place] [id number] Care Team Providers Care Assistant Professor Of Art Name Role Phone Unavailable Primary Care Provider Unavailabl e Allergies No known active allergies Medications labetalol HCl (LABETALOL ORAL) Active potassium chloride SR (MICRO-K) 10 mEq CR capsule Activ e SIMVASTATIN ORAL Active amLODIPine-Nirmala zepril 10-40 mg per capsule TAKE 1 CAPSULE BY MOUTH ONCE DAILY FOR 90 DAYS 08/03/2020 Active Active Problems Problem Noted Date Diagnosed Date Prostate cancer 10/11/2020 Social History Tobacco Use Types Packs/Day Years Used Date Smoking Tobacco: Never Smokeless Tobacco: Never Area Deprivation Index Answer Date Jonathan rded National Score (1-100), lower number is lower ri sk Not on file 10/02/2020 State Score (1-10), lower number is lower risk N ot on file 10/02/2020 Data from: https://www.neighborhoodatlas.medicine.[facility].edu/. Last address used for calculation Not on file 10/02/2020 Sex and Gender Information Value Date Recorded Sex Assigned at Male 10/07/2020 11:17 PM EDT Legal Sex Male 2:15 PM EDT Gender Identity Male 10/07/2020 11:17 PM EDT Sexual Orientation Straight 10/07/2020 11 :17 PM EDT Last Filed Vital Signs Vital Sign Reading Time Taken Comments Blood Pressure 146/73 10/11/2020 11:38 AM EDT Pulse 64 10/11/2020 11:38 AM EDT Temperature - - Respiratory Rate 16 10/11/2020 11:38 AM EDT Oxygen Saturation - - Inhaled Oxygen Concentration - - Weight 78 kg (172 lb) 10/11/2020 11:38 AM EDT Height - - Body Mass Index - - Plan of Treatment Health Maintenance Due Date Last Done Comments Anxiety Screening 08/30/1967 Depression Screening 08/30/1967 Hepatitis C Screening 08/30/1967 DTaP,Tdap,Td Vaccine (1 - Tdap) [address] Colonography 1994 Cologuard (FIT-DNA) 1994 Colonoscopy 1994 Colorectal Cancer Screening 1994 Diabetes Screening 1994 Fecal Occult Blood 1994 Sigmoidoscopy 1994 Pneumococcal Vaccine: 50+ (1 of 1 - PCV) 08/30/1999 Shingrix Vaccine (1 of 2) 08/30/1999 Covid-19 Vaccine (1 - season) 2024 Advance Directive Discussion 06/07/2024 RSV Vaccine (1 - 1-dose 75+ series) 2024 Influenza Vaccine (Season Ended) 2025 Insurance MEDICARE [employer] SUPPLEMENT
--- OUTSIDE RECORDS SUMMARY | 2024-10-31 08:59 | XMS_ITS | Encounter Summary ---
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 Role Phone Pawan Salazar MD Unavailable [phone] Pawan Salazar MD Primary Care Provider [phone] Encounter Details Date Type Department Care Team (Late st Contact Info) Description 10/13/2023 Clinisync Result Encounter [facility] External Department Unsolicited [...] Procedure Name Priority Date/Time Associated Diagnosis Comments XR FOOT RT MIN 3V 10/13/2023 6:5 1 AM EDT documented in this encounter Results * XR FOOT RT MIN 3V (10/13/2023 6:51 AM EDT) Anatomical Region Laterality Modality Other 10/13/2023 6:51 AM EDT Narrative 10/13/2023 6:54 AM EDT [facility] [address] [place] [address] XRay Report Signed Patient: BALTAZAR DUPONT MR#: [id number] : 1950 Acct:[id number] Age/Sex: 73 / M ADM Date: 10/12/23 Loc: EC Attending Dr: Kalee Apodaca Ordering Physician: Kalee Apodaca Date of Service: 10/12/23 Procedure(s): XR foot RT min 3V Accession Number(s): [id number] cc: PAWAN SALAZAR ; Kalee Apodaca [place] [address] Patient Name: BALTAZAR DUPONT MRN: [facility]:[id number] date: 1950 Sex: M Assigned Patient Location: Current Patient Location: Accession/Order Number: [id number] Exam Date: 10/12/2023 13:10 Report Date: 10/13/2023 06:51 At the request of: KALEE APODACA Procedure: XR foot RT min 3V PROCEDURE: XR foot RT min 3V HISTORY: RIGHT FOOT PAIN COMPARISON: None. FINDINGS: BONES:No fracture, acute abnormality, or significant arthropathy. Mild degenerative enthesopathic spurring of the calcaneus. SOFT TISSUES:No visible soft tissue swelling. EFFUSION:None visible. OTHER: Negative. XR/XR foot RT min 3V IMPRESSION: 1. No acute bone abnormality. 2. Minimal degenerative changes. Electronically authenticated by: WILL QUINONEZ Date: 10/13/2023 06:51 Dictated By: Will Quinonez M.D. Signed By: 10/13/23 0654 DD/ 0651 TD/TT: Brake Coupler Dinkey: Procedure Note Radiology, Radiologist, MD - 10/13/2023 [place] [address] XRay Report Signed Patient: BALTAZAR DUPONT [facility]#: [id number] : 1950Acct:[id number] Age/Sex: 73 / MADM Date: 10/12/23 Loc: EC Attending Dr: Kalee Apodaca Ordering Physician: Kalee Apodaca Date of Service: 10/12/23 Procedure(s): XR foot RT min 3V Accession Number(s): [id number] cc: PAWAN SALAZAR ; Kalee Apodaca The [address] [address] Patient Name: BALTAZAR DUPONT MRN: [id number] date: 1950 Sex: M Assigned Patient Location: Current Patient Location: Accession/Order Number: [id number] Exam Date: 10/12/2023 13:10 Report Date: 10/13/2023 06:51 At the request of: KALEE APODACA Procedure: XR foot RT min 3V PROCEDURE: XR foot RT min 3V HISTORY: RIGHT FOOT PAIN COMPARISON: None. FINDINGS: BONES:No fracture, acute abnormality, or significant arthropathy. Mild degenerative enthesopathic spurring of the calcaneus. SOFT TISSUES:No visible soft tissue swelling. EFFUSION:None visible. OTHER: Negative. XR/XR foot RT min 3V IMPRESSION: 1. No acute bone abnormality. 2. Minimal degenerative changes. Electronically authenticated by: WILL QUINONEZ Date: 10/13/2023 06:51 Dictated By: Will Quinonez M.D. 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
[2024-10-31 11:17] LABS: Prostate Specific Antigen Dx 2.14 ng/mL (<=4.00)
== END 2024-10-31 08:55 | disposition home or self-care (01) ==
LOC: LAB 08:57
PROVIDERS: PCP Internal Medicine; Visit Provider Urology
DX: C61 Malignant neoplasm of prostate (principal)
CPT/HCPCS: 36415; 84153